=== PATIENT | female | born 1960 | race Caucasian/White ===

== ENCOUNTER → 2017-11-21 09:16 | Outpatient (CLI) | payer OTHER, SELFPAY ==
[2017-11-21 09:43] LABS: Add Manual Diff / Slide Review NO; Basophils Percent Auto 1.1 % (0-2); Eosinophils Percent Auto 4.8 % (2-4); Hematocrit 41.4 % (36-46); Hemoglobin 14.2 g/dL (12.0-16.0); Lymphocytes Percent Auto 24.8 % (25-40); Mean Corpuscular HGB Conc 34.2 % (30-36); Mean Corpuscular Hemoglobin 29.5 PG (26-34); Mean Corpuscular Volume 86.3 fL (80-100); Monocytes Percent Auto 7.3 % (3-14); Neutrophils Absolute Auto 3800 /uL (3000-5900); Platelet Count 278 X10^3/uL (150-400); Red Cell Distribution Width 12.7 % (11.6-14.8); White Blood Cell Count 6.1 X10^3/uL (4.5-11.0)
[2017-11-21 10:01] LABS: Alanine Aminotransferase 33 IU/L (9-52); Albumin 4.4 g/dL (3.5-5.0); Albumin Globulin Ratio 1.6 (1.0-2.8); Alkaline Phosphatase 76 U/L (38-126); Aspartate Aminotransferase 23 IU/L (14-36); Bilirubin Total 0.5 mg/dL (0.2-1.3); Blood Urea Nitrogen 10 mg/dL (7-17); Calcium 9.6 mg/dL (8.4-10.2); Carbon Dioxide 23 mmol/L (22-32); Chloride 104 mmol/L (98-107); Estimated Glomerular Filt Rate > 60.0 mL/min (>60); Globulin 2.8 g/dL (1.7-4.1); Glucose 128 mg/dL (70-100); HEMOLYSIS < 15 (0-50); Potassium 3.8 mmol/L (3.4-5.1); Sodium 140 mmol/L (137-145); Total Protein 7.2 g/dL (6.3-8.2)
== END ==
PROVIDERS: Family Provider Physician Assistant; PCP Physician Assistant; Visit Provider Nurse Practitioner Gerontology
DX: C50.912 Malignant neoplasm of unspecified site of left female breast (principal)
CPT/HCPCS: 36415; 80053; 85025

== ENCOUNTER → 2018-05-19 07:24 | Outpatient (CLI) | payer OTHER, SELFPAY ==
[2018-05-19 09:35] LABS: Alanine Aminotransferase 38 IU/L (9-52); Albumin 4.3 g/dL (3.5-5.0); Albumin Globulin Ratio 1.5 (1.0-2.8); Alkaline Phosphatase 66 U/L (38-126); Aspartate Aminotransferase 22 IU/L (14-36); Bilirubin Total 0.6 mg/dL (0.2-1.3); Blood Urea Nitrogen 15 mg/dL (7-17); Calcium 9.3 mg/dL (8.4-10.2); Carbon Dioxide 25 mmol/L (22-32); Chloride 105 mmol/L (98-107); Cholesterol 199 mg/dL (140-199); Estimated Glomerular Filt Rate > 60.0 mL/min (>60); Globulin 2.8 g/dL (1.7-4.1); Glucose 152 mg/dL (70-100); HDL Cholesterol 36 mg/dL (40-60); HEMOLYSIS < 15 (0-50); LDL Cholesterol Calculated 132 mg/dL (<100); Potassium 4.7 mmol/L (3.4-5.1); Sodium 141 mmol/L (137-145); Total Protein 7.1 g/dL (6.3-8.2); Triglycerides 157 mg/dL (35-150)
== END ==
PROVIDERS: Family Provider Physician Assistant; PCP Physician Assistant; Visit Provider Physician Assistant
DX: E78.2 Mixed hyperlipidemia (principal); R01.1 Cardiac murmur, unspecified; Z51.81 Encounter for therapeutic drug level monitoring
CPT/HCPCS: 36415; 80053; 80061

== ENCOUNTER → 2018-06-01 14:52 | Outpatient (CLI) | payer OTHER, SELFPAY ==
--- NOTE | 2018-06-01 | DI.MG.S_ITS ---
BILATERAL DIGITAL SCREENING MAMMOGRAM 3D/2D WITH CAD POST LUMPECTOMY: 06/01/2018 CLINICAL: Routine screening. Personal history of left breast cancer. Comparison is made to exams dated: 05/23/2017 mammogram, 05/21/2016 mammogram, 01/30/2014 mammogram, and 03/03/2015 mammogram - [facility]. There are scattered fibroglandular elements in both breasts. Current study was also evaluated with a Computer Aided Detection (CAD) system. There are benign post operative findings in the left breast. There also are benign calcifications in both breasts. No significant masses, calcifications, or other findings are seen in either breast. There has been no significant interval change. IMPRESSION: There is no mammographic evidence of malignancy. A 1 year screening mammogram is recommended. This exam was interpreted at Station ID: [id number]. NOTE: For mammograms, a report in lay terms will be sent to the patient. Approximately 15% of breast malignancies will not be visualized mammographically. In the management of a palpable breast mass, a negative mammogram must not discourage biopsy of a clinically suspicious lesion. Electronically Signed By: Reyes yates/[email or web address]:06/01/2018 17:40:10 copy to: LEANDRO BOGGS letter sent: Normal Exam ACR BI-RADS Category 2: Benign Finding(s) 3342F
== END ==
PROVIDERS: Family Provider Physician Assistant; PCP Physician Assistant; Visit Provider Physician Assistant
DX: Z12.31 Encounter for screening mammogram for malignant neoplasm of breast (principal); Z85.3 Personal history of malignant neoplasm of breast
CPT/HCPCS: 77063; 77067

== ENCOUNTER → 2018-06-01 15:44 | Outpatient (CLI) | payer OTHER, SELFPAY ==
[2018-06-01 16:26] LABS: Hemoglobin A1C% w Est Avg Glu 6.8 % (4.0-6.0)
[2018-06-01 16:46] LABS: Free T3, Triiodothyronine Free 4.21 pg/mL (2.77-5.27); Free T4, Direct Thyroxine 1.16 ng/dL (0.78-2.19)
[2018-06-01 17:00] LABS: Thyroid Stimulating Hormone 1.93 uIU/mL (0.47-4.68)
== END ==
PROVIDERS: Family Provider Physician Assistant; PCP Physician Assistant; Visit Provider Physician Assistant
DX: E78.2 Mixed hyperlipidemia (principal); R73.9 Hyperglycemia, unspecified
CPT/HCPCS: 36415; 83036; 84439; 84443; 84481

== ENCOUNTER → 2018-10-03 07:09 | Outpatient (CLI) | payer OTHER, SELFPAY ==
[2018-10-05 19:04] LABS: Fecal Immunochemical Test NOT DETECTED (NOT DETECTED)
== END ==
PROVIDERS: PCP Physician Assistant; Visit Provider Physician Assistant
DX: Z12.11 Encounter for screening for malignant neoplasm of colon (principal)
CPT/HCPCS: 82274

== ENCOUNTER → 2018-11-27 11:49 | Oncology outpatient (ONC) | payer OTHER, SELFPAY ==
--- NOTE | 2017-11-22 09:57 | ONC.APRN.PN ---
Assessment and Plan (1) Breast cancer, left breast Current visit: No Status: Acute 11/22/17 10:02 The patient is a 57 year old Female who is being seen in the clinic 11/22/2017. She carries a diagnosis of stage II ER/[place] positive HER-2 negative grade 2 left-sided breast cancer. She remains in clinical remission/surveillance since original diagnosis was made in April 2015. Annual bilateral screening mammogram in May of this year was without evidence of disease. Patient is up-to-date on colonoscopy as well. On exam today no clinical signs or symptoms to suggest disease recurrence. CBC, CMP remain unremarkable. Return to clinic in 6 months time for provider visit, no lab work indicated. 11/22/17 10:42 - Time Spent with Patient 35 mins PN -Subjective Interval history: The patient is a 57 year old Female who is being seen in the clinic 11/22/2017. She carries a diagnosis of stage II ER/[place] positive HER-2 negative grade 2 left-sided breast cancer. She remains in clinical remission/surveillance since original diagnosis was made in April 2015. Patient presents today for her 6 month clinical evaluation. Most recent bilateral screening mammogram dated 05/23/2017 was without evidence of recurrent disease. Patient's acute chief complaints at this time include: none. Patient's chronic chief complaints at this time include: hot flashes, not getting any better. She reports she continues to have hot flashes daily. She states they are ?tolerable?. Neuropathy has resolved. Acupuncture helped tremendously. No recent illnesses or infections. Overall feeling quite well. No concerns or changes to report. Continues to see Meli López for her primary care. She is up-to-date on colonoscopy. Past Medical History The patient's past medical history is significant for: 1) Invasive breast cancer. Stage I pT1 N0, ercb-2 like. Diagnosis: 04/14/2015. Ultrasound core needle, left breast, 6- o'clock position. Pathology confirming invasive ductal carcinoma, moderately differentiated. [place] histological grade 2 out of 3 with a mitosis of 2. No LVI or associated calcifications were seen. No DCIS. Immunostains were negative for ER and [place], both less than 1%. HER-2 was 3+. IHC, and Ki-67 was noted to be 38%. 05/21/2015. Partial mastectomy with sentinel node procedure. Pathology reporting 11.5-cm of breast tissue removed. Her primary occupying 1.4 cm with a [place] histological grade of 3 with a mitosis score of 3. No LVI was seen. Associated DCIS was identified. However, margins of resection were negative for carcinoma, the closest for the invasive being 4 mm, DCIS 3 mm. Two sentinel lymph nodes were identified, both of which were negative for disease. Breast cancer risk factor evaluation: 04/24/2015. BRCA testing showing no evidence of BRCA mutation. Adjuvant Treatment: 06/17/2015. Pertuzamab, Herceptin, and paclitaxel every 3 week ?4 cycles. She completed 1 year of maintenance Herceptin on 06/15/2016. Cardiac monitorin04/29/2015. Echocardiogram. EF of 70% to 75%. 03/01/2016. Echocardiogram. EF 65-70%. Surveillance: Mammogram every May. 2. Hypercholesterolemia. 3. Anxiety. 4. Seasonal allergies. Home Medications and Allergies Home Medications Medication Instructions Recorded Confirmed Type aspirin 81 mg PO QDAY #0 07/14/16 11/14/17 History fenofibrate 160 mg PO QDAY #90 tab 03/08/17 11/14/17 Rx pravastatin [Pravachol] 40 mg PO HS #90 tab 03/08/17 11/14/17 Rx levocetirizine 5 mg PO QDAY #90 tab 08/16/17 11/14/17 Rx Allergies Allergy/AdvReac Type Severity Reaction Status Date / Time strawberry Allergy Severe REDNESS Unverified 11/14/17 13:26 AND SWOLLEN LIPS nitrofurantoin Allergy Intermediate UPSET Unverified 11/14/17 13:26 STOMACH atorvastatin Allergy Mild MYALGIAS Unverified 11/14/17 13:26 codeine Allergy Mild VOMITING Unverified 11/14/17 13:26 Penicillins Allergy Mild RASH Unverified 11/14/17 13:26 Exam Narrative: well appearing - Constitutional positive no acute distress, positive obese - Routine HEENT Exam Head: Present: normocephalic, atraumatic Eye: Present: conjunctivae pink. Absent: conjunctival icterus, scleral injection ENT: Present: mucous membranes moist, oropharynx clear - Routine Neck Exam Present: supple. Absent: lymphadenopathy - Routine Chest/Breast/Axilla Exam Chest wall exam standard: Absent: tenderness, mass Breast: Absent: tenderness, induration, mass, erythema Axillae: Absent: lymphadenopathy, mass, tenderness, erythema - Routine Respiratory Exam Present: Clear to auscultation bilaterally - Routine Cardiovascular Exam Present: RRR - Routine Abdominal Exam Present: soft, normoactive bowel sounds. Absent: tenderness, distended, organomegaly - Routine Extremities Exam Absent: edema, calf tenderness - Routine Skin Exam Present: intact, normal turgor. Absent: petechiae - Routine Neurological Exam Present: alert, oriented X3 - Routine Psychiatric Exam Present: normal affect
--- NOTE | 2017-11-22 10:02 | P.PNONC_ITS ---
Assessment and Plan (1) Breast cancer, left breast Current visit: No Status: Acute 11/22/17 10:02 The patient is a 57 year old Female who is being seen in the clinic 11/22/2017. She carries a diagnosis of stage II ER/[place] positive HER-2 negative grade 2 left- sided breast cancer. She remains in clinical remission/surveillance since original diagnosis was made in April 2015. Annual bilateral screening mammogram in May of this year was without evidence of disease. Patient is up-to-date on colonoscopy as well. On exam today no clinical signs or symptoms to suggest disease recurrence. CBC , CMP remain unremarkable. Return to clinic in 6 months time for provider visit , no lab work indicated. 11/22/17 10:42 - Time Spent with Patient 35 mins PN -Subjective Interval history: The patient is a 57 year old Female who is being seen in the clinic 11/22/2017. She carries a diagnosis of stage II ER/[place] positive HER-2 negative grade 2 left- sided breast cancer. She remains in clinical remission/surveillance since original diagnosis was made in April 2015. Patient presents today for her 6 month clinical evaluation. Most recent bilateral screening mammogram dated 05/23/2017 was without evidence of recurrent disease. Patient's acute chief complaints at this time include: none. Patient's chronic chief complaints at this time include: hot flashes, not getting any better. She reports she continues to have hot flashes daily. She states they are ?tolerable?. Neuropathy has resolved. Acupuncture helped tremendously. No recent illnesses or infections. Overall feeling quite well. No concerns or changes to report. Continues to see Meli López for her primary care. She is up -to-date on colonoscopy. Past Medical History The patient's past medical history is significant for: 1) Invasive breast cancer. Stage I pT1 N0, ercb-2 like. Diagnosis: 04/14/2015. Ultrasound core needle, left breast, 6- o'clock position. Pathology confirming invasive ductal carcinoma, moderately differentiated. [place] histological grade 2 out of 3 with a mitosis of 2. No LVI or associated calcifications were seen. No DCIS. Immunostains were negative for ER and [place], both less than 1%. HER-2 was 3+. IHC, and Ki-67 was noted to be 38%. 05/21/2015. Partial mastectomy with sentinel node procedure. Pathology reporting 11.5-cm of breast tissue removed. Her primary occupying 1.4 cm with a [place] histological grade of 3 with a mitosis score of 3. No LVI was seen. Associated DCIS was identified. However, margins of resection were negative for carcinoma, the closest for the invasive being 4 mm, DCIS 3 mm. Two sentinel lymph nodes were identified, both of which were negative for disease. Breast cancer risk factor evaluation: 04/24/2015. BRCA testing showing no evidence of BRCA mutation. Adjuvant Treatment: 06/17/2015. Pertuzamab, Herceptin, and paclitaxel every 3 week ?4 cycles. She completed 1 year of maintenance Herceptin on 06/15/2016. Cardiac monitorin04/29/2015. Echocardiogram. EF of 70% to 75%. 03/01/2016. Echocardiogram. EF 65-70%. Surveillance: Mammogram every May. 2. Hypercholesterolemia. 3. Anxiety. 4. Seasonal allergies. Home Medications and Allergies Home Medications Medication Instructions Recorded Confirmed Type aspirin 81 mg PO QDAY #0 07/14/16 11/14/17 History fenofibrate 160 mg PO QDAY #90 tab 03/08/17 11/14/17 Rx pravastatin [Pravachol] 40 mg PO HS #90 tab 03/08/17 11/14/17 Rx levocetirizine 5 mg PO QDAY #90 tab 08/16/17 11/14/17 Rx Allergies Allergy/AdvReac Type Severity Reaction Status Date / Time strawberry Allergy Severe REDNESS Unverified 11/14/17 13:26 AND SWOLLEN LIPS nitrofurantoin Allergy Intermediate UPSET Unverified 11/14/17 13:26 STOMACH atorvastatin Allergy Mild MYALGIAS Unverified 11/14/17 13:26 codeine Allergy Mild VOMITING Unverified 11/14/17 13:26 Penicillins Allergy Mild RASH Unverified 11/14/17 13:26 Exam Narrative: well appearing - Constitutional positive no acute distress, positive obese - Routine HEENT Exam Head: Present: normocephalic, atraumatic Eye: Present: conjunctivae pink. Absent: conjunctival icterus, scleral injection ENT: Present: mucous membranes moist, oropharynx clear - Routine Neck Exam Present: supple. Absent: lymphadenopathy - Routine Chest/Breast/Axilla Exam Chest wall exam standard: Absent: tenderness, mass Breast: Absent: tenderness, induration, mass, erythema Axillae: Absent: lymphadenopathy, mass, tenderness, erythema - Routine Respiratory Exam Present: Clear to auscultation bilaterally - Routine Cardiovascular Exam Present: RRR - Routine Abdominal Exam Present: soft, normoactive bowel sounds. Absent: tenderness, distended, organomegaly - Routine Extremities Exam Absent: edema, calf tenderness - Routine Skin Exam Present: intact, normal turgor. Absent: petechiae - Routine Neurological Exam Present: alert, oriented X3 - Routine Psychiatric Exam Present: normal affect
[2017-11-22 10:19] VITALS: BP 146/88; PULSE 84; RESP 18; TEMP 36; O2SAT 98
--- NOTE | 2018-06-06 13:21 | P.PNONC_ITS ---
PN -Subjective Interval history: The patient is a 57 year old Female who is being seen in the clinic 06/06/2018. She carries a diagnosis of stage II ER/[place] positive HER-2 negative grade 2 left- sided breast cancer. She remains in clinical remission/surveillance since original diagnosis was made in April 2015. Patient presents today for her 6 month clinical evaluation. Most recent bilateral screening mammogram dated 06/01/2018 was without evidence of recurrent disease, recommendation is to repeat in one year. Patient's acute chief complaints at this time include: none. Unfortunately she recently suffered the loss of her [id number] who from ALS. Otherwise she is in good health. She does continue to have almost daily hot flashes although she states they are tolerable. She has not had any illnesses since previous visit. No headaches. No unexplained weight loss, appetite is stable, weight is stable. No new pain. No new lumps or bumps. No skin changes. 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 Past Medical History The patient's past medical history is significant for: 1) Invasive breast cancer. Stage I pT1 N0, ercb-2 like. Diagnosis: 04/14/2015. Ultrasound core needle, left breast, 6- o'clock position. Pathology confirming invasive ductal carcinoma, moderately differentiated. [place] histological grade 2 out of 3 with a mitosis of 2. No LVI or associated calcifications were seen. No DCIS. Immunostains were negative for ER and [place], both less than 1%. HER-2 was 3+. IHC, and Ki-67 was noted to be 38%. 05/21/2015. Partial mastectomy with sentinel node procedure. Pathology reporting 11.5-cm of breast tissue removed. Her primary occupying 1.4 cm with a [place] histological grade of 3 with a mitosis score of 3. No LVI was seen. Associated DCIS was identified. However, margins of resection were negative for carcinoma, the closest for the invasive being 4 mm, DCIS 3 mm. Two sentinel lymph nodes were identified, both of which were negative for disease. Breast cancer risk factor evaluation: 04/24/2015. BRCA testing showing no evidence of BRCA mutation. Adjuvant Treatment: 06/17/2015. Pertuzamab, Herceptin, and paclitaxel every 3 week ?4 cycles. She completed 1 year of maintenance Herceptin on 06/15/2016. Cardiac monitorin04/29/2015. Echocardiogram. EF of 70% to 75%. 03/01/2016. Echocardiogram. EF 65-70%. Surveillance: Mammogram every May. 2. Hypercholesterolemia. 3. Anxiety. 4. Seasonal allergies. Home Medications and Allergies Home Medications Medication Instructions Recorded Confirmed Type aspirin 81 mg PO QDAY #0 07/14/16 05/23/18 History levocetirizine 5 mg PO QDAY #90 tab 08/16/17 05/23/18 Rx fenofibrate 160 mg tablet 160 mg PO QDAY #90 tab 05/09/18 05/23/18 Rx pravastatin 40 mg tablet 40 mg PO HS #90 tab 05/09/18 05/23/18 Rx Allergies Allergy/AdvReac Type Severity Reaction Status Date / Time strawberry Allergy Severe REDNESS Unverified 05/23/18 15:53 AND SWOLLEN LIPS nitrofurantoin Allergy Intermediate UPSET Unverified 05/23/18 15:53 STOMACH atorvastatin Allergy Mild MYALGIAS Unverified 05/23/18 15:53 codeine Allergy Mild VOMITING Unverified 05/23/18 15:53 Penicillins Allergy Mild RASH Unverified 05/23/18 15:53 Exam - Constitutional positive no acute distress - Routine HEENT Exam Eye: Present: conjunctivae pink. Absent: conjunctival icterus, scleral injection ENT: Present: mucous membranes moist, oropharynx clear - Routine Neck Exam Present: supple. Absent: lymphadenopathy - Routine Chest/Breast/Axilla Exam Chest wall exam standard: Absent: tenderness, mass Breast: Absent: tenderness, induration, mass Axillae: Absent: lymphadenopathy, mass, tenderness - Routine Respiratory Exam Present: Clear to auscultation bilaterally. Absent: rales, rhonchi, wheezes - Routine Cardiovascular Exam Present: RRR, S1, S2. Absent: murmur, gallop, rubs, JVD - Routine Abdominal Exam Present: soft, normoactive bowel sounds. Absent: tenderness, distended, organomegaly Palpation/Percussion: Absent: fluid waves Comments: obese abd - Routine Extremities Exam Absent: edema, calf tenderness - Routine Skin Exam Present: intact, normal turgor. Absent: rash - Routine Neurological Exam Present: alert, oriented X3 - Routine Psychiatric Exam Present: normal affect Assessment and Plan (1) Breast cancer, left breast Current visit: No Status: Resolved The patient is a 58-year-old female who carries a diagnosis of stage II ER/[place] positive, HER2 negative left-sided breast cancer. Reassuringly on exam today she has no clinical signs or symptoms of disease recurrence. Routine bilateral screening Mammogram dated June 01, 2017 is without evidence of malignancy. Patient reports she is up-to-date with her colonoscopy. Return to clinic in 6 months time for provider visit we will also check basic blood work including CBC and CMP.
[2018-11-27 13:42] LABS: Add Manual Diff / Slide Review NO; Basophils Absolute Auto 100 /uL (0-100); Basophils Percent Auto 1.1 % (0-2); Eosinophils Absolute Auto 300 /uL (0-450); Eosinophils Percent Auto 4.1 % (2-4); Hematocrit 43.5 % (36-46); Hemoglobin 14.4 g/dL (12.0-16.0); Lymphocytes Absolute Auto 1900 /uL (1100-4500); Lymphocytes Percent Auto 23.7 % (25-40); Mean Corpuscular HGB Conc 33.1 % (30-36); Mean Corpuscular Hemoglobin 29.5 PG (26-34); Monocytes Absolute Auto 400 /uL (0-900); Monocytes Percent Auto 5.4 % (3-14); Neutrophils Absolute Auto 5200 /uL (1500-7000); Neutrophils Percent Auto 65.7 % (50-75); Platelet Count 303 X10^3/uL (150-400); Red Blood Cell Count 4.88 X10^6/uL (4.0-5.2); Red Cell Distribution Width 13.1 % (11.6-14.8)
[2018-11-27 14:58] LABS: Alanine Aminotransferase 27 IU/L (9-52); Albumin 4.4 g/dL (3.5-5.0); Albumin Globulin Ratio 1.6 (1.0-2.8); Alkaline Phosphatase 61 U/L (38-126); Aspartate Aminotransferase 25 IU/L (14-36); BUN Creatinine Ratio 27.5 (6-22); Bilirubin Total 0.6 mg/dL (0.2-1.3); Blood Urea Nitrogen 11 mg/dL (7-17); Calcium 9.9 mg/dL (8.4-10.2); Carbon Dioxide 24 mmol/L (22-32); Chloride 100 mmol/L (98-107); Estimated Glomerular Filt Rate > 60.0 mL/min (>60); Globulin 2.8 g/dL (1.7-4.1); Glucose 170 mg/dL (70-100); HEMOLYSIS 18 (0-50); Potassium 4.2 mmol/L (3.4-5.1); Sodium 139 mmol/L (137-145); Total Protein 7.2 g/dL (6.3-8.2)
== END ==
PROVIDERS: Family Provider Physician Assistant; PCP Physician Assistant; Visit Provider Internal Medicine Hematology & Oncology
DX: Z08 Encounter for follow-up examination after completed treatment for malignant neoplasm (principal); Z85.3 Personal history of malignant neoplasm of breast; E78.00 Pure hypercholesterolemia, unspecified; F41.9 Anxiety disorder, unspecified; J30.2 Other seasonal allergic rhinitis
CPT/HCPCS: 36415; 80053; 85025; 99214

== ENCOUNTER → 2019-03-30 08:42 | Outpatient (CLI) | payer OTHER, SELFPAY ==
[2019-03-30 09:53] LABS: Hemoglobin A1C% w Est Avg Glu 6.9 % (4.0-6.0)
[2019-03-30 09:54] LABS: Alanine Aminotransferase 23 IU/L (<35); Albumin 4.4 g/dL (3.5-5.0); Albumin Globulin Ratio 1.7 (1.0-2.8); Alkaline Phosphatase 67 U/L (38-126); Aspartate Aminotransferase 22 IU/L (14-36); BUN Creatinine Ratio 32.5 (6-22); Bilirubin Total 0.6 mg/dL (0.2-1.3); Blood Urea Nitrogen 13 mg/dL (7-17); Carbon Dioxide 26 mmol/L (22-32); Chloride 104 mmol/L (98-107); Cholesterol 178 mg/dL (140-199); Estimated Glomerular Filt Rate > 60.0 mL/min (>60); Globulin 2.6 g/dL (1.7-4.1); Glucose 139 mg/dL (70-100); HDL Cholesterol 32 mg/dL (40-60); HEMOLYSIS < 15 (0-50); LDL Cholesterol Calculated 112 mg/dL (<100); Potassium 4.7 mmol/L (3.4-5.1); Sodium 139 mmol/L (137-145); Triglycerides 168 mg/dL (35-150)
[2019-03-30 10:31] LABS: Creatinine Urine Random 44.5 mg/dL
[2019-03-30 10:36] LABS: Microalbumi Creatinin Ratio Ur 13.4 ug/mg CR (<30); Microalbumin Urine Random < 0.6 mg/dL (0-1.6)
[2019-03-30 11:01] LABS: Thyroid Stimulating Hormone 3.17 uIU/mL (0.47-4.68)
== END ==
PROVIDERS: PCP Physician Assistant; Visit Provider Physician Assistant
DX: E78.2 Mixed hyperlipidemia (principal); R23.2 Flushing; R53.83 Other fatigue; R73.01 Impaired fasting glucose
CPT/HCPCS: 36415; 80053; 80061; 82043; 82570; 83036; 84443

== ENCOUNTER → 2019-05-21 10:07 | Outpatient (CLI) | payer OTHER, SELFPAY ==
[2019-05-21 12:50] LABS: Hemoglobin A1C% w Est Avg Glu 6.8 % (4.0-6.0)
== END ==
PROVIDERS: PCP Physician Assistant; Visit Provider Physician Assistant
DX: E11.9 Type 2 diabetes mellitus without complications (principal); E78.2 Mixed hyperlipidemia
CPT/HCPCS: 36415; 83036

== ENCOUNTER → 2019-06-05 16:53 | Outpatient (CLI) | payer OTHER, SELFPAY ==
--- NOTE | 2019-06-05 16:56 | DI.MG.S_ITS ---
BILATERAL DIGITAL SCREENING MAMMOGRAM 3D/2D WITH CAD: 06/05/2019 CLINICAL: Routine screening. Personal history of left breast cancer. Family history of breast cancer. Comparison is made to exams dated: 06/01/2018 mammogram, 05/23/2017 mammogram, 05/21/2016 mammogram, 05/21/2015 localization, and 03/03/2015 mammogram - [facility]. There are scattered fibroglandular elements in both breasts. Current study was also evaluated with a Computer Aided Detection (CAD) system. There are benign calcifications in both breasts. There also are benign post operative findings in the left breast. No significant masses, calcifications, or other findings are seen in either breast. There has been no significant interval change. IMPRESSION: There is no mammographic evidence of malignancy. A 1 year screening mammogram is recommended. This exam was interpreted at Station ID: [id number]. NOTE: For mammograms, a report in lay terms will be sent to the patient. Approximately 15% of breast malignancies will not be visualized mammographically. In the management of a palpable breast mass, a negative mammogram must not discourage biopsy of a clinically suspicious lesion. Electronically Signed By: Jose Manuel wright/christine:06/05/2019 18:17:13 copy to: LEANDRO BOGGS letter sent: Normal Exam ACR BI-RADS Category 2: Benign Finding(s) 3342F
== END ==
PROVIDERS: PCP Physician Assistant; Referring Provider Physician Assistant; Visit Provider Physician Assistant
DX: Z12.31 Encounter for screening mammogram for malignant neoplasm of breast (principal); Z85.3 Personal history of malignant neoplasm of breast; Z80.3 Family history of malignant neoplasm of breast
CPT/HCPCS: 77063; 77067

== ENCOUNTER → 2019-06-20 15:04 | Outpatient (CLI) | payer OTHER, SELFPAY ==
--- NOTE | 2019-06-20 16:57 | DIET.PN ---
Diabetes Intake: Initial Assessment Assess: Mrs. Trujillo is a 59 YOF referred for type 2 diabetes. She is newly diagnosed. Labs: Per pt report: A1c: 6.8 Meds: metformin XR 500 mg qd Wt: 231lb Ht: 65in BMI: 38.4 (obese class III) DX: Altered nutrition related laboratory values related to impaired glucose metabolism, lack of previous exposure to nutrition information as evidenced by pt report, diagnosis of diabetes, previous diet high in refined carbohydrates. Intervention: 1. Completed intake assessment. Discussed barriers to care. 2. Discussed pathophysiology of diabetes. Reviewed A1c and its correlation to blood glucose numbers. Discussed recommended BG ranges. 3. Discussed importance of self-monitoring, how often, and when to check. Provided demonstration on use of glucometer. 4. Reviewed hyper/hypoglycemia and treatment. 5. Reviewed safe disposal of equipment (strip/lancets/insulin needles). 6. Created SMART goals for pt self-care and success. 7. Discussed program curriculum outline and class needs based on individual goals. SMART Goals: 1. Pt would like to lose 12 lb (5% current body weight) in 3 mo. Monitor/Evaluate: Anticipate excellent compliance. Pt will attend full DSME program. First class scheduled for Jul 02.
== END ==
PROVIDERS: PCP Nurse Practitioner Family; Referring Provider Physician Assistant; Visit Provider Physician Assistant
DX: E11.9 Type 2 diabetes mellitus without complications (principal); E66.9 Obesity, unspecified; Z68.38 Body mass index [BMI] 38.0-38.9, adult; Z71.3 Dietary counseling and surveillance
CPT/HCPCS: G0108

== ENCOUNTER → 2019-07-03 14:21 | Outpatient (CLI) | payer OTHER, SELFPAY ==
--- NOTE | 2019-07-03 16:54 | DIET.PN ---
Exercise/Lifestyle change: 1. Importance of exercise 2. FITT (frequency, intensity, time, type) 3. Strength training tips and guidelines 4. Glucose monitoring/ranges before and after 5. Proper foot attire 6. Developing strategies for behavior change 7. SMART Goal Setting 8. Home exercise routine demonstration (as a class)
== END ==
PROVIDERS: PCP Nurse Practitioner Family; Referring Provider Nurse Practitioner Family; Visit Provider Nurse Practitioner Family
DX: E11.9 Type 2 diabetes mellitus without complications (principal); Z71.3 Dietary counseling and surveillance
CPT/HCPCS: G0109

== ENCOUNTER → 2019-10-01 07:36 | Outpatient (CLI) | payer OTHER, SELFPAY ==
[2019-10-01 07:57] LABS: Hematocrit 41.5 % (36-46); Mean Corpuscular HGB Conc 33.8 % (30-36); Mean Corpuscular Hemoglobin 29.8 PG (26-34); Mean Corpuscular Volume 88.2 fL (80-100); Platelet Count 268 X10^3/uL (150-400); Red Blood Cell Count 4.71 X10^6/uL (4.0-5.2); Red Cell Distribution Width 13.1 % (11.6-14.8); White Blood Cell Count 6.5 X10^3/uL (4.5-11.0)
[2019-10-01 08:08] LABS: Hemoglobin A1C% w Est Avg Glu 6.9 % (4.0-6.0)
[2019-10-01 08:11] LABS: Alanine Aminotransferase 22 IU/L (<35); Albumin 4.5 g/dL (3.5-5.0); Albumin Globulin Ratio 1.5 (1.0-2.8); Alkaline Phosphatase 56 U/L (38-126); Aspartate Aminotransferase 24 IU/L (14-36); BUN Creatinine Ratio 36.6 (6-22); Bilirubin Total 0.4 mg/dL (0.2-1.3); Blood Urea Nitrogen 15 mg/dL (7-17); Calcium 9.5 mg/dL (8.4-10.2); Carbon Dioxide 24 mmol/L (22-32); Chloride 106 mmol/L (98-107); Cholesterol 178 mg/dL (140-199); Estimated Glomerular Filt Rate > 60.0 mL/min (>60); Globulin 3.1 g/dL (1.7-4.1); Glucose 143 mg/dL (70-100); HDL Cholesterol 31 mg/dL (40-60); HEMOLYSIS < 15 (0-50); LDL Cholesterol Calculated 123 mg/dL (<100); Potassium 4.4 mmol/L (3.4-5.1); Sodium 141 mmol/L (137-145); Total Protein 7.6 g/dL (6.3-8.2); Triglycerides 121 mg/dL (35-150)
== END ==
PROVIDERS: PCP Nurse Practitioner Family; Referring Provider Nurse Practitioner Family; Visit Provider Nurse Practitioner Family
DX: Z00.00 Encounter for general adult medical examination without abnormal findings (principal); E11.9 Type 2 diabetes mellitus without complications; E78.2 Mixed hyperlipidemia
CPT/HCPCS: 36415; 80053; 80061; 83036; 85027

== ENCOUNTER → 2019-10-25 09:51 | Outpatient (CLI) | payer OTHER, SELFPAY ==
--- NOTE | 2019-10-25 12:14 | DIET.PN ---
Diabetes: Healthy Eating 2 Intervention: Fats effects on glucose, weight, heart disease, cholesterol Sat Vs Unsat Protein- animal and plant based options Low, med, high fat meats Sugar substitutes Sodium Health claims Grocery shopping guidelines Eating away from home Alcohol Sick day guidelines Ketone Testing
== END ==
PROVIDERS: PCP Nurse Practitioner Family; Referring Provider Nurse Practitioner Family; Visit Provider Nurse Practitioner Family
DX: E11.9 Type 2 diabetes mellitus without complications (principal); Z71.3 Dietary counseling and surveillance
CPT/HCPCS: G0109

== ENCOUNTER → 2019-10-30 10:00 | Outpatient (CLI) | payer OTHER, SELFPAY ==
--- NOTE | 2019-10-30 11:54 | DIET.PN ---
Diabetes Physiology: Intervention 1. Diabetes physiology 2. Detecting and treatment of acute and chronic complications 3. Diagnosis of and difference in types of diabetes 4. Self-monitoring and pattern management a. Demonstrate glucometer and control testing b. Explain BG results and action to take when out of range. 5. Foot , eye, dental care 6. Medications a. Oral medication classification b. Injectable c. Insulin i. Injection protocol ii. Other delivery methods
== END ==
PROVIDERS: PCP Nurse Practitioner Family; Referring Provider Nurse Practitioner Family; Visit Provider Nurse Practitioner Family
DX: E11.9 Type 2 diabetes mellitus without complications (principal); Z71.3 Dietary counseling and surveillance
CPT/HCPCS: G0109

== ENCOUNTER → 2019-11-19 09:54 | Outpatient (CLI) | payer OTHER, SELFPAY ==
--- NOTE | 2019-11-19 11:12 | DIET.PN ---
DIABETES Nutrition Initial Assessment:? ASSESS:?Ms. Zee is a 59 yof??referred for type 2 diabetes seen as part of DSME program. She had new labs in September with minimal change. She endorses walking several miles with her daily up until the last week and a half during her vacation. She admits her eating habits have not been as good since beginning her summer vacation. They are often out of town at their summer home. She has been adding more fruits and vegetables to her meals, using a smaller plate, and is grilling rather than frying meats. She has been carrying a water bottle with her everywhere she goes to increase her water consumption. Her has been very supportive in exercising and trying to eat healthier with her. ??? LABS: Per pt report:? A1c: 6.9 TC: 178 LDL: 123 HDL: 31 Tri ? MEDS:?? Metf XR 500mg qd; new cholesterol med ? DIET: Per 24-hour recall:? B: Bowl of cereal w/ almond milk; yogurt (low fat w/ fruit) L: Castor w/ occasional chips or cottage cheese D: Lean meat, salad, starch (rice, potato) Sn: Popcorn, frozen yogurt Eating Out: 1-3x/wk Changes in Appetite: no change Nutrition Supplements: no change ? Weight: 231 Height: 65in BMI: ? 38.4 (obese class III) ? Exercise:? Rachid Salazar 2.5 miles/day NUTRITION DX 1. Altered Nutrition related labs related to impaired glucose metabolism, lack of previous exposure to accurate nutrition information as evidenced by pt report, dx of diabetes, previous diet high in refined carbohydrates.? INTERVENTION(s): 1. Reviewed pathophysiology of diabetes and impact of nutrition/diet on blood sugar control.? Discussed fed versus non-fed state.?? 2. Discussed the effect of carbohydrates/protein/fat on blood sugar control.? Stressed importance of consistent carbohydrate intake at each meal and provided instructions for recommended servings/portions of carbohydrates/protein per meal. Provided pt with educational material. 3. Reviewed carbohydrate counting and measuring carbohydrate content via serving sizes and reading nutrition labels.? Provided handouts.?? 4. Discussed the difference between simple versus complex carbohydrates and the effect of fiber on blood sugar control.? Discussed various methods to increase fiber content in diet. 5. Stressed importance of meal timing and not going >4-5 hours between meals. Encouraged adding protein to evening snack to support glucose control overnight. Patient agreeable. 6. Discussed healthy weight loss goals of 1-2lbs per week through diet and exercise.? Pt agreeable to walking at least 30 minutes daily. 7. Recommend monitoring fasting and alternating 2 hr PP mealtime glucose. MONITOR/EVALUATE: Anticipate good compliance.? Nutrition follow-up scheduled for 1 month
[2019-11-19 11:13] VITALS: BMI 38.5
== END ==
PROVIDERS: PCP Nurse Practitioner Family; Referring Provider Nurse Practitioner Family; Visit Provider Nurse Practitioner Family
DX: E11.9 Type 2 diabetes mellitus without complications (principal); E66.9 Obesity, unspecified; Z68.38 Body mass index [BMI] 38.0-38.9, adult; Z79.84 Long term (current) use of oral hypoglycemic drugs; Z71.3 Dietary counseling and surveillance
CPT/HCPCS: G0109

== ENCOUNTER → 2019-12-11 10:09 | Outpatient (CLI) | payer OTHER, SELFPAY ==
--- NOTE | 2019-12-11 11:48 | DIET.PN ---
Diabetes: Healthy Eating 1 Intervention: ? Discussed pathophysiology of diabetes and impact of nutrition/diet on blood sugar control.? Discussed fed versus non-fed state.?? ? Reviewed importance of Balance, Variety, and Moderation. ? Discussed the effect of carbohydrates/protein/fat on blood sugar control.? ? Stressed importance of consistent carbohydrate intake at each meal and provided instructions for recommended servings/portions of carbohydrates/protein per meal. Provided educational material. ? Reviewed carbohydrate counting and measuring carbohydrate content via serving sizes and reading nutrition labels.? Provided handouts.?? ? Discussed the difference between simple versus complex carbohydrates and the effect of fiber on blood sugar control.? Discussed various methods to increase fiber content in diet. ? Discussed the plate method for creating more carbohydrate conscious balanced meals. ? Stressed importance of meal timing and not going >4-5 hours between meals. Encouraged adding protein to evening snack to support glucose control overnight. ? Discussed importance of making dietary habits part of lifestyle change.
== END ==
PROVIDERS: PCP Nurse Practitioner Family; Referring Provider Nurse Practitioner Family; Visit Provider Nurse Practitioner Family
DX: E11.9 Type 2 diabetes mellitus without complications (principal); Z71.3 Dietary counseling and surveillance
CPT/HCPCS: G0109

== ENCOUNTER → 2019-12-26 13:46 | Outpatient (CLI) | payer OTHER, SELFPAY ==
--- NOTE | 2019-12-26 15:15 | DIET.PN ---
Diabetes Follow Up Assess: Met for Mrs. Zee?s 3 mo follow up visit. Patient admits she has not been following her meal plan much over the summer. She has spent a lot of time on vacation dining out and at her summer cabin snacking. She has not been very active over the last few months due to warmer weather. She states she understands what she should be doing but is having a hard time sticking with it. She admits she is not staying as hydrated as she should and feels this is affecting her glucose readings as well. Labs: A1c: 6.9 FB-180 Meds: metf XR 500 mg pd Ht: 65in Wt: 232.4 lb BMI: 38.6 Nutrition DX: Altered nutrition related laboratory values related to impaired glucose metabolism, lack of previous exposure to nutrition information as evidenced by pt report, diagnosis of diabetes, previous diet high in refined carbohydrates. Intervention: 1. Completed follow up assessment. Reviewed barriers to care. 2. Reviewed new labs and importance of continued BG monitoring. 3. Reviewed SMART goals and made modifications where appropriate including wt management, activity, and A1c goals. 4. Discussed snack options for better glucose control. Provided ?under 200 calorie snack? list. 5. Discussed goals for physical activity to help with weight management. 6. Discussed plan for ongoing support. Provided information for continued support and success. Monitor/Evaluate: Pt will follow up in 3 mo to discuss new labs and barriers to care.
== END ==
PROVIDERS: PCP Nurse Practitioner Family; Referring Provider Nurse Practitioner Family; Visit Provider Nurse Practitioner Family
DX: E11.9 Type 2 diabetes mellitus without complications (principal)
CPT/HCPCS: G0109

== ENCOUNTER → 2020-04-04 07:24 | Outpatient (CLI) | payer OTHER, SELFPAY ==
[2020-04-04 08:30] LABS: Hemoglobin A1C% w Est Avg Glu 7.4 % (4.0-6.0)
[2020-04-04 08:59] LABS: BUN Creatinine Ratio 33.3 (6-22); Blood Urea Nitrogen 14 mg/dL (7-17); Calcium 9.4 mg/dL (8.4-10.2); Carbon Dioxide 25 mmol/L (22-32); Chloride 103 mmol/L (98-107); Cholesterol 160 mg/dL (140-199); Estimated Glomerular Filt Rate > 60.0 mL/min (>60); Glucose 151 mg/dL (70-100); HDL Cholesterol 34 mg/dL (40-60); HEMOLYSIS < 15 (0-50); LDL Cholesterol Calculated 92 mg/dL (<100); Potassium 4.3 mmol/L (3.4-5.1); Sodium 136 mmol/L (137-145); Triglycerides 172 mg/dL (35-150)
== END ==
PROVIDERS: PCP Nurse Practitioner Family; Referring Provider Nurse Practitioner Family; Visit Provider Nurse Practitioner Family
DX: E11.9 Type 2 diabetes mellitus without complications (principal); E78.5 Hyperlipidemia, unspecified
CPT/HCPCS: 36415; 80048; 80061; 83036

== ENCOUNTER → 2020-04-08 14:17 | Outpatient (CLI) | payer OTHER, SELFPAY | PROVIDERS: PCP Nurse Practitioner Family; Referring Provider Nurse Practitioner Family; Visit Provider Nurse Practitioner Family | DX: E11.9 Type 2 diabetes mellitus without complications (principal); Z71.3 Dietary counseling and surveillance | CPT/HCPCS: G0109 ==

== ENCOUNTER → 2020-06-06 15:39 | Outpatient (CLI) | payer OTHER, SELFPAY ==
--- NOTE | 2020-06-06 15:40 | DI.MG.S_ITS ---
BILATERAL DIGITAL SCREENING MAMMOGRAM 3D/2D WITH CAD: 06/06/2020 CLINICAL: Routine screening. Personal history of left breast cancer. Family history of breast cancer. Comparison is made to exams dated: 06/05/2019 mammogram, 06/01/2018 mammogram, 05/23/2017 mammogram, and 05/21/2016 mammogram - [facility]. There are scattered fibroglandular elements in both breasts. Current study was also evaluated with a Computer Aided Detection (CAD) system. There are benign calcifications in both breasts. There also are benign post operative findings in the left breast. No significant masses, calcifications, or other findings are seen in either breast. There has been no significant interval change. IMPRESSION: BENIGN There is no mammographic evidence of malignancy. A 1 year screening mammogram is recommended. This exam was interpreted at Station ID: [id number]. NOTE: For mammograms, a report in lay terms will be sent to the patient. Approximately 15% of breast malignancies will not be visualized mammographically. In the management of a palpable breast mass, a negative mammogram must not discourage biopsy of a clinically suspicious lesion. Electronically Signed By: Jerald puga/christine:06/06/2020 16:28:53 copy to: LEANDRO BOGGS letter sent: Normal Exam ACR BI-RADS Category 2: Benign Finding(s) 3342F
== END ==
PROVIDERS: PCP Nurse Practitioner Family; Referring Provider Nurse Practitioner Family; Visit Provider Nurse Practitioner Family
DX: Z12.31 Encounter for screening mammogram for malignant neoplasm of breast (principal); Z85.3 Personal history of malignant neoplasm of breast; Z80.3 Family history of malignant neoplasm of breast
CPT/HCPCS: 77063; 77067

== ENCOUNTER → 2020-08-07 08:08 | Outpatient (CLI) | payer OTHER, SELFPAY ==
[2020-08-07 09:21] LABS: Hemoglobin A1C% w Est Avg Glu 7.6 % (4.0-6.0)
[2020-08-07 09:33] LABS: Alanine Aminotransferase 30 IU/L (<35); Albumin 4.2 g/dL (3.5-5.0); Albumin Globulin Ratio 1.5 (1.0-2.8); Alkaline Phosphatase 69 U/L (38-126); Aspartate Aminotransferase 25 IU/L (14-36); BUN Creatinine Ratio 31.7 (6-22); Bilirubin Total 0.4 mg/dL (0.2-1.3); Blood Urea Nitrogen 13 mg/dL (7-17); Calcium 9.5 mg/dL (8.4-10.2); Carbon Dioxide 24 mmol/L (22-32); Chloride 103 mmol/L (98-107); Cholesterol 201 mg/dL (140-199); Estimated Glomerular Filt Rate > 60.0 mL/min (>60); Globulin 2.8 g/dL (1.7-4.1); Glucose 151 mg/dL (70-100); HDL Cholesterol 33 mg/dL (40-60); HEMOLYSIS < 15 (0-50); LDL Cholesterol Calculated 123 mg/dL (<100); Potassium 4.2 mmol/L (3.4-5.1); Sodium 137 mmol/L (137-145); Triglycerides 225 mg/dL (35-150)
[2020-08-07 10:00] LABS: Creatinine Urine Random 97.4 mg/dL
[2020-08-07 10:04] LABS: Microalbumi Creatinin Ratio Ur 20.5 ug/mg CR (<30)
== END ==
PROVIDERS: PCP Nurse Practitioner Family; Referring Provider Nurse Practitioner Family; Visit Provider Nurse Practitioner Family
DX: Z00.00 Encounter for general adult medical examination without abnormal findings (principal); E11.9 Type 2 diabetes mellitus without complications; Z13.6 Encounter for screening for cardiovascular disorders
CPT/HCPCS: 36415; 80053; 80061; 82043; 82570; 83036

== ENCOUNTER → 2021-03-13 07:13 | Outpatient (CLI) | payer OTHER, SELFPAY ==
[2021-03-13 08:18] LABS: Add Manual Diff / Slide Review NO; Basophils Absolute Auto 100 /uL (0-100); Basophils Percent Auto 0.9 % (0-2); Eosinophils Absolute Auto 300 /uL (0-450); Eosinophils Percent Auto 3.9 % (2-4); Hematocrit 41.7 % (36-46); Lymphocytes Absolute Auto 1500 /uL (1100-4500); Lymphocytes Percent Auto 20.9 % (25-40); Mean Corpuscular HGB Conc 33.5 % (30-36); Mean Corpuscular Hemoglobin 29.3 PG (26-34); Mean Corpuscular Volume 87.5 fL (80-100); Monocytes Absolute Auto 500 /uL (0-900); Monocytes Percent Auto 6.9 % (3-14); Neutrophils Absolute Auto 4900 /uL (1500-7000); Neutrophils Percent Auto 67.4 % (50-75); Platelet Count 255 X10^3/uL (150-400); Red Blood Cell Count 4.77 X10^6/uL (4.0-5.2); White Blood Cell Count 7.3 X10^3/uL (4.5-11.0)
[2021-03-13 08:40] LABS: Alanine Aminotransferase 29 IU/L (<35); Albumin 4.3 g/dL (3.5-5.0); Albumin Globulin Ratio 1.7 (1.0-2.8); Alkaline Phosphatase 66 U/L (38-126); Aspartate Aminotransferase 27 IU/L (14-36); BUN Creatinine Ratio 27.9 (6-22); Bilirubin Total 0.4 mg/dL (0.2-1.3); Blood Urea Nitrogen 12 mg/dL (7-17); Calcium 9.6 mg/dL (8.4-10.2); Carbon Dioxide 28 mmol/L (22-32); Chloride 100 mmol/L (98-107); Cholesterol 183 mg/dL (140-199); Estimated Glomerular Filt Rate > 60.0 mL/min (>60); Globulin 2.6 g/dL (1.7-4.1); Glucose 198 mg/dL (70-100); HDL Cholesterol 41 mg/dL (40-60); HEMOLYSIS < 15 (0-50); LDL Cholesterol Calculated 99 mg/dL (<100); Potassium 4.3 mmol/L (3.4-5.1); Sodium 139 mmol/L (137-145); Total Protein 6.9 g/dL (6.3-8.2); Triglycerides 213 mg/dL (35-150)
[2021-03-13 08:47] LABS: Hemoglobin A1C% w Est Avg Glu 8.3 % (4.0-6.0)
[2021-03-16 12:49] LABS: Fecal Immunochemical Test Negative (Negative)
== END ==
PROVIDERS: PCP Nurse Practitioner Family; Referring Provider Nurse Practitioner Family; Visit Provider Nurse Practitioner Family
DX: E11.9 Type 2 diabetes mellitus without complications (principal); Z12.11 Encounter for screening for malignant neoplasm of colon
CPT/HCPCS: 36415; 80053; 80061; 82274; 83036; 85025

== ENCOUNTER → 2021-05-18 08:10 | Outpatient (CLI) | payer OTHER, SELFPAY ==
[2021-05-18 09:42] LABS: Hemoglobin A1C% w Est Avg Glu 9.5 % (4.0-6.0)
[2021-05-18 09:56] LABS: Alanine Aminotransferase 29 IU/L (<35); Albumin 4.3 g/dL (3.5-5.0); Albumin Globulin Ratio 1.5 (1.0-2.8); Alkaline Phosphatase 62 U/L (38-126); Aspartate Aminotransferase 29 IU/L (14-36); Bilirubin Total 0.5 mg/dL (0.2-1.3); Blood Urea Nitrogen 10 mg/dL (7-17); Calcium 9.6 mg/dL (8.4-10.2); Carbon Dioxide 28 mmol/L (22-32); Chloride 102 mmol/L (98-107); Estimated Glomerular Filt Rate > 60.0 mL/min (>60); Globulin 2.8 g/dL (1.7-4.1); Glucose 204 mg/dL (70-100); HEMOLYSIS < 15 (0-50); Potassium 4.6 mmol/L (3.4-5.1); Sodium 136 mmol/L (137-145); Total Protein 7.1 g/dL (6.3-8.2)
== END ==
PROVIDERS: PCP Nurse Practitioner Family; Referring Provider Nurse Practitioner Family; Visit Provider Nurse Practitioner Family
DX: E11.9 Type 2 diabetes mellitus without complications (principal); Z00.00 Encounter for general adult medical examination without abnormal findings; Z85.3 Personal history of malignant neoplasm of breast
CPT/HCPCS: 36415; 80053; 83036

== ENCOUNTER → 2021-06-09 17:13 | Outpatient (CLI) | payer OTHER, SELFPAY ==
--- NOTE | 2021-06-09 17:14 | DI.MG.S_ITS ---
BILATERAL DIGITAL SCREENING MAMMOGRAM 3D/2D WITH CAD: 06/09/2021 CLINICAL: Routine screening. Personal history of left breast cancer. Family history of breast cancer. Comparison is made to exams dated: 06/06/2020 mammogram, 06/05/2019 mammogram, and 06/01/2018 mammogram - [facility]. There are scattered fibroglandular elements in both breasts. Current study was also evaluated with a Computer Aided Detection (CAD) system. There are benign calcifications in both breasts. There also are benign post operative findings in the left breast. No significant masses, calcifications, or other findings are seen in either breast. There has been no significant interval change. IMPRESSION: BENIGN There is no mammographic evidence of malignancy. A 1 year screening mammogram is recommended. This exam was interpreted at Station ID: [id number]. NOTE: For mammograms, a report in lay terms will be sent to the patient. Approximately 15% of breast malignancies will not be visualized mammographically. In the management of a palpable breast mass, a negative mammogram must not discourage biopsy of a clinically suspicious lesion. Electronically Signed By: Jerald puga/christine:06/10/2021 08:44:14 copy to: LEANDRO BOGGS letter sent: Normal Exam ACR BI-RADS Category 2: Benign Finding(s) 3342F
== END ==
PROVIDERS: PCP Nurse Practitioner Family; Referring Provider Nurse Practitioner Family; Visit Provider Nurse Practitioner Family
DX: Z12.31 Encounter for screening mammogram for malignant neoplasm of breast (principal); Z85.3 Personal history of malignant neoplasm of breast; Z80.3 Family history of malignant neoplasm of breast
CPT/HCPCS: 77063; 77067

== ENCOUNTER → 2021-08-20 07:00 | Outpatient (CLI) | payer OTHER, SELFPAY ==
[2021-08-20 08:07] LABS: Add Manual Diff / Slide Review NO; Basophils Absolute Auto 100 /uL (0-100); Basophils Percent Auto 1.1 % (0-2); Eosinophils Absolute Auto 300 /uL (0-450); Eosinophils Percent Auto 5.1 % (2-4); Hematocrit 41.8 % (36-46); Hemoglobin 14.4 g/dL (12.0-16.0); Lymphocytes Absolute Auto 1600 /uL (1100-4500); Lymphocytes Percent Auto 28.2 % (25-40); Mean Corpuscular HGB Conc 34.3 % (30-36); Mean Corpuscular Hemoglobin 29.6 PG (26-34); Mean Corpuscular Volume 86.2 fL (80-100); Monocytes Absolute Auto 400 /uL (0-900); Monocytes Percent Auto 7.8 % (3-14); Neutrophils Absolute Auto 3200 /uL (1500-7000); Neutrophils Percent Auto 57.8 % (50-75); Platelet Count 232 X10^3/uL (150-400); Red Blood Cell Count 4.86 X10^6/uL (4.0-5.2); Red Cell Distribution Width 12.4 % (11.6-14.8); White Blood Cell Count 5.5 X10^3/uL (4.5-11.0)
[2021-08-20 08:19] LABS: Hemoglobin A1C% w Est Avg Glu 10.2 % (4.0-6.0)
[2021-08-20 08:22] LABS: Alanine Aminotransferase 25 IU/L (<35); Albumin 4.3 g/dL (3.5-5.0); Albumin Globulin Ratio 1.8 (1.0-2.8); Alkaline Phosphatase 54 U/L (38-126); Aspartate Aminotransferase 24 IU/L (14-36); BUN Creatinine Ratio 36.1 (6-22); Bilirubin Total 0.6 mg/dL (0.2-1.3); Blood Urea Nitrogen 13 mg/dL (7-17); Carbon Dioxide 25 mmol/L (22-32); Chloride 102 mmol/L (98-107); Cholesterol 135 mg/dL (140-199); Estimated Glomerular Filt Rate > 60 mL/min (>60); Globulin 2.4 g/dL (1.7-4.1); Glucose 212 mg/dL (70-100); HDL Cholesterol 35 mg/dL (40-60); HEMOLYSIS < 15 (0-50); LDL Cholesterol Calculated 71 mg/dL (<100); Potassium 4.2 mmol/L (3.4-5.1); Sodium 139 mmol/L (137-145); Total Protein 6.7 g/dL (6.3-8.2); Triglycerides 144 mg/dL (35-150)
[2021-08-20 08:38] LABS: Free T3, Triiodothyronine Free 3.54 pg/mL (2.77-5.27)
[2021-08-20 08:46] LABS: Creatinine Urine Random 119.6 mg/dL
[2021-08-20 08:50] LABS: Microalbumi Creatinin Ratio Ur 31.7 ug/mg CR (<30); Microalbumin Urine Random 3.8 mg/dL (0-1.6)
[2021-08-20 08:52] LABS: Thyroid Stimulating Hormone 2.37 uIU/mL (0.47-4.68)
== END ==
PROVIDERS: PCP Nurse Practitioner; Referring Provider Nurse Practitioner; Visit Provider Nurse Practitioner
DX: E11.9 Type 2 diabetes mellitus without complications (principal); E78.2 Mixed hyperlipidemia; R03.0 Elevated blood-pressure reading, without diagnosis of hypertension
CPT/HCPCS: 36415; 80053; 80061; 82043; 82570; 83036; 84439; 84443; 84481; 85025

== ENCOUNTER → 2021-10-20 07:04 | Outpatient (CLI) | payer OTHER, SELFPAY ==
[2021-10-20 08:13] LABS: Glucose 171 mg/dL (70-100)
== END ==
PROVIDERS: PCP Nurse Practitioner; Referring Provider Nurse Practitioner; Visit Provider Nurse Practitioner
DX: E11.9 Type 2 diabetes mellitus without complications (principal)
CPT/HCPCS: 36415; 82947; 83036

== ENCOUNTER → 2021-11-06 08:08 | Outpatient (CLI) | payer OTHER, SELFPAY ==
--- NOTE | 2021-11-06 08:09 | DI.ECHO.S_ITS ---
[facility] +---------+ : : [address] : [address] [place] : : : : [id number] : : : : Phone: [phone]+ Echocardiogram Report + + :Name: ALLIE BANG Study Date: 11/06/2021 Height: 65 in : :[facility] ReadingLocation: Weight: 218 lb : : Gender: Female BSA: 2.1 m2 : :: 1960 Age: 61 yrs BP: 129/77 mmHg: :Reason For Study: HYPERTENSION : :Ordering Physician: KRISTINE, : :ALECIA Performed By: Ara Wang : :Referring: ALECIA CARMONA : + + Interpretation Summary The left ventricle is grossly normal size. The left ventricle is hyperdynamic. The ejection fraction is estimated to be 70-75%. No significant LV outflow tract obstruction. Previous LVEF 65 to 70%. Increase aortic valve velocity and pulmonary valve velocity due to hyperdynamic LV and vigorous RV outflow tract contraction without any significant obstruction. No significant aortic valve or pulmonary valve stenosis. Overall no significant valvular pathology seen. The IVC is of normal diameter and collapses greater than 50% with a sniff. This suggests a low right atrial pressure of 3 mm Hg. Procedure: Images from the parasternal window were difficult to obtain and are suboptimal in quality. Most of the acoustic windows were suboptimal, but the best imaging was obtained from the apical window. Comparison is made with the echocardiogram of 03/01/2016. The patient was in sinus rhythm with heart rates between 75-100 bpm during the exam. Left Ventricle: The left ventricle is grossly normal size. Left ventricular wall thickness is borderline increased. There is no thrombus. The ejection fraction is estimated to be 70-75%. The left ventricle is hyperdynamic. There are no focal wall motion abnormalities. Diastolic parameters suggest a relaxation abnormality of the left ventricle, consistent with probable normal filling pressures. Right Ventricle: The right ventricle is normal in size and function. RV outflow tract has vigorous contraction. Atria: The left atrial size is normal. Right atrial size is normal. There is no Doppler evidence for an interatrial shunt. Mitral Valve: There is mild mitral annular calcification. There is trace mitral regurgitation. Aortic Valve: The aortic valve is not well visualized. There is no hemodynamically significant valvular aortic stenosis. No aortic regurgitation is present. Tricuspid Valve: The tricuspid valve is not well visualized, but is grossly normal. There is trace tricuspid regurgitation. Pulmonary artery pressures cannot be estimated because of the lack of a measurable TR jet velocity. Pulmonic Valve: The pulmonic valve is not well visualized. There is no pulmonic valvular regurgitation. Great Vessels: The aortic root is normal size. The dimensions of the ascending aorta are normal. The IVC is of normal diameter and collapses greater than 50% with a sniff. This suggests a low right atrial pressure of 3 mm Hg. Pericardium/ Pleura There is no pericardial effusion. There is an anterior echo-free space consistent with a fat pad. There is no pleural effusion. MMode/2D Measurements & Calculations LVIDd: 4.7 cm LVOT diam: 2.0 cm IVSd: 1.0 cm asc Aorta Diam: 3.3 cm LVPWd: 0.93 cm Ao Arch Diam (Prox Trans): 2.4 cm LV mitchell. diameter/BSA (cm/m^2): 2.3 LA A2 area: 16.4 cm2 RA long axis: 5.1 cm LA A4 area: 19.7 cm2 RA area: 15.3 cm2 LA length (vol): 5.7 cm RA vol: 38.7 ml LA vol: 48.6 ml RA : 18.9 ml/m2 LA vol index: 23.7 ml/m2 IVC diam: 1.1 cm RVD1 (basal): 3.1 cm RVD2 (mid): 3.0 cm TAPSE: 2.4 cm Doppler Measurements & Calculations Ao V2 max: 207.8 cm/sec MV E max juan c: 76.2 cm/sec Ao V2 mean: 127.1 cm/sec MV A max juan c: 107.2 cm/sec Ao max P.3 mmHg MV E/A: 0.71 Ao mean P.8 mmHg Med Peak E' Juan C: 6.3 cm/sec Ao V2 VTI: 34.1 cm E/E' med: 12.1 Lat Peak E' Juan C: 5.8 cm/sec E/E' lat: 13.2 E/e' average: 12.6 MV dec time: 0.18 sec PA V2 max: 154.7 cm/sec PA V2 mean: 108.8 cm/sec PA mean P.2 mmHg Reading Physician:03:00 PM
== END ==
PROVIDERS: PCP Nurse Practitioner; Referring Provider Nurse Practitioner; Visit Provider Nurse Practitioner
DX: I10 Essential (primary) hypertension (principal)
CPT/HCPCS: 93306

== ENCOUNTER → 2021-12-31 07:15 | Outpatient (CLI) | payer OTHER, SELFPAY ==
[2021-12-31 08:58] LABS: Hemoglobin A1C% w Est Avg Glu 7.3 % (4.0-6.0)
[2021-12-31 09:01] LABS: Creatinine Urine Random 107.7 mg/dL
[2021-12-31 09:07] LABS: Microalbumi Creatinin Ratio Ur 22.2 ug/mg CR (<30); Microalbumin Urine Random 2.4 mg/dL (0-1.6)
[2021-12-31 09:37] LABS: Alanine Aminotransferase 28 IU/L (<35); Albumin 4.2 g/dL (3.5-5.0); Albumin Globulin Ratio 1.6 (1.0-2.8); Alkaline Phosphatase 47 U/L (38-126); Aspartate Aminotransferase 28 IU/L (14-36); BUN Creatinine Ratio 30.4 (6-22); Bilirubin Total 0.4 mg/dL (0.2-1.3); Blood Urea Nitrogen 14 mg/dL (7-17); Calcium 9.1 mg/dL (8.4-10.2); Carbon Dioxide 26 mmol/L (22-32); Chloride 104 mmol/L (98-107); Cholesterol 133 mg/dL (140-199); Estimated Glomerular Filt Rate > 60 mL/min (>60); Globulin 2.6 g/dL (1.7-4.1); Glucose 153 mg/dL (70-100); HDL Cholesterol 36 mg/dL (40-60); HEMOLYSIS < 15 (0-50); LDL Cholesterol Calculated 67 mg/dL (<100); Potassium 4.5 mmol/L (3.4-5.1); Sodium 139 mmol/L (137-145); Total Protein 6.8 g/dL (6.3-8.2); Triglycerides 148 mg/dL (35-150)
== END ==
PROVIDERS: PCP Nurse Practitioner; Referring Provider Nurse Practitioner; Visit Provider Nurse Practitioner
DX: E11.9 Type 2 diabetes mellitus without complications (principal); E78.2 Mixed hyperlipidemia; I10 Essential (primary) hypertension; Z79.899 Other long term (current) drug therapy
CPT/HCPCS: 36415; 80053; 80061; 82043; 82570; 83036

== ENCOUNTER → 2022-04-28 08:13 | Outpatient (CLI) | payer OTHER, SELFPAY ==
[2022-04-28 09:19] LABS: Alanine Aminotransferase 26 IU/L (<35); Albumin 4.3 g/dL (3.5-5.0); Albumin Globulin Ratio 1.4 (1.0-2.8); Alkaline Phosphatase 47 U/L (38-126); Aspartate Aminotransferase 20 IU/L (14-36); BUN Creatinine Ratio 31.8 (6-22); Bilirubin Total 0.3 mg/dL (0.2-1.3); Blood Urea Nitrogen 14 mg/dL (7-17); Calcium 9.3 mg/dL (8.4-10.2); Carbon Dioxide 23 mmol/L (22-32); Chloride 104 mmol/L (98-107); Cholesterol 158 mg/dL (140-199); Estimated Glomerular Filt Rate > 60 mL/min (>60); Glucose 132 mg/dL (80-110); HDL Cholesterol 40 mg/dL (40-60); HEMOLYSIS < 15 (0-50); Hemoglobin A1C% w Est Avg Glu 6.6 % (4.0-6.0); LDL Cholesterol Calculated 89 mg/dL (<100); Potassium 4.7 mmol/L (3.4-5.1); Sodium 139 mmol/L (137-145); Total Protein 7.3 g/dL (6.3-8.2); Triglycerides 143 mg/dL (35-150)
[2022-04-29 17:28] LABS: Hep C Virus Ab w/Reflex Quant NEGATIVE s/c (NEGATIVE)
== END ==
PROVIDERS: PCP Nurse Practitioner; Referring Provider Nurse Practitioner; Visit Provider Nurse Practitioner
DX: E11.9 Type 2 diabetes mellitus without complications (principal); E78.2 Mixed hyperlipidemia; I10 Essential (primary) hypertension; Z79.899 Other long term (current) drug therapy; Z11.59 Encounter for screening for other viral diseases
CPT/HCPCS: 36415; 80053; 80061; 82043; 82570; 83036; 86803

== ENCOUNTER → 2022-06-17 14:57 | Outpatient (CLI) | payer OTHER, SELFPAY ==
--- NOTE | 2022-06-17 | DI.MG.S_ITS ---
BILATERAL DIGITAL SCREENING MAMMOGRAM 3D/2D WITH CAD: 06/17/2022 CLINICAL: Routine screening. Personal history of left breast cancer. Family history of breast cancer. Comparison is made to exams dated: 06/09/2021 mammogram, 06/06/2020 mammogram, and 06/05/2019 mammogram - [facility]. There are scattered areas of fibroglandular density in both breasts (category b / 25%-50% glandular tissue). Current study was also evaluated with a Computer Aided Detection (CAD) system. There are benign calcifications in both breasts. There also are benign post operative findings in the left breast. No significant masses, calcifications, or other findings are seen in either breast. There has been no significant interval change. IMPRESSION: BENIGN There is no mammographic evidence of malignancy. A 1 year screening mammogram is recommended. This exam was interpreted at Station ID: [id number]. NOTE: For mammograms, a report in lay terms will be sent to the patient. Approximately 15% of breast malignancies will not be visualized mammographically. In the management of a palpable breast mass, a negative mammogram must not discourage biopsy of a clinically suspicious lesion. Electronically Signed By: Keely fajardo/christine:06/18/2022 10:03:38 copy to: LEANDRO BOGGS letter sent: Normal Exam ACR BI-RADS Category 2: Benign Finding(s) 3342F
== END ==
PROVIDERS: PCP Nurse Practitioner; Referring Provider Nurse Practitioner; Visit Provider Nurse Practitioner
DX: Z12.31 Encounter for screening mammogram for malignant neoplasm of breast (principal); Z85.3 Personal history of malignant neoplasm of breast; Z80.3 Family history of malignant neoplasm of breast
CPT/HCPCS: 77063; 77067

== ENCOUNTER → 2022-08-12 07:01 | Outpatient (CLI) | payer OTHER, SELFPAY ==
[2022-08-12 08:54] LABS: Creatinine Urine Random 91.8 mg/dL
[2022-08-12 08:58] LABS: Microalbumi Creatinin Ratio Ur 9.8 ug/mg CR (<30); Microalbumin Urine Random 0.9 mg/dL (0-1.6)
[2022-08-12 09:02] LABS: Alanine Aminotransferase 29 IU/L (<35); Albumin Globulin Ratio 1.4 (1.0-2.8); Alkaline Phosphatase 45 U/L (38-126); Aspartate Aminotransferase 23 IU/L (14-36); BUN Creatinine Ratio 34.1 (6-22); Bilirubin Total 0.4 mg/dL (0.2-1.3); Blood Urea Nitrogen 15 mg/dL (7-17); Calcium 9.1 mg/dL (8.4-10.2); Carbon Dioxide 27 mmol/L (22-32); Chloride 101 mmol/L (98-107); Cholesterol 146 mg/dL (140-199); Estimated Glomerular Filt Rate > 60 mL/min (>60); Globulin 2.8 g/dL (1.7-4.1); Glucose 132 mg/dL (80-110); HDL Cholesterol 38 mg/dL (40-60); HEMOLYSIS < 15 (0-50); LDL Cholesterol Calculated 79 mg/dL (<100); Potassium 4.7 mmol/L (3.4-5.1); Sodium 138 mmol/L (137-145); Total Protein 6.8 g/dL (6.3-8.2); Triglycerides 143 mg/dL (35-150)
[2022-08-12 09:10] LABS: Free T4, Direct Thyroxine 1.23 ng/dL (0.78-2.19)
[2022-08-12 09:23] LABS: Thyroid Stimulating Hormone 2.43 uIU/mL (0.47-4.68)
[2022-08-13 01:07] LABS: Labcorp Hemoglobin (Hb) A1c 6.7 % (4.8-5.6)
== END ==
PROVIDERS: PCP Nurse Practitioner; Referring Provider Nurse Practitioner; Visit Provider Nurse Practitioner
DX: E11.9 Type 2 diabetes mellitus without complications (principal); E78.2 Mixed hyperlipidemia; F41.9 Anxiety disorder, unspecified; I10 Essential (primary) hypertension
CPT/HCPCS: 36415; 80053; 80061; 82043; 82570; 83036; 84439; 84443; 84481

== ENCOUNTER → 2022-11-09 08:44 | Outpatient (CLI) | payer OTHER, SELFPAY ==
[2022-11-09 09:34] LABS: Alanine Aminotransferase 29 IU/L (<35); Albumin 4.2 g/dL (3.5-5.0); Albumin Globulin Ratio 1.5 (1.0-2.8); Alkaline Phosphatase 50 U/L (38-126); Aspartate Aminotransferase 23 IU/L (14-36); BUN Creatinine Ratio 37.8 (6-22); Bilirubin Total 0.4 mg/dL (0.2-1.3); Blood Urea Nitrogen 17 mg/dL (7-17); Calcium 9.3 mg/dL (8.4-10.2); Carbon Dioxide 24 mmol/L (22-32); Chloride 103 mmol/L (98-107); Cholesterol 145 mg/dL (140-199); Estimated Glomerular Filt Rate > 60 mL/min (>60); Globulin 2.8 g/dL (1.7-4.1); Glucose 133 mg/dL (80-110); HDL Cholesterol 38 mg/dL (40-60); HEMOLYSIS < 15 (0-50); LDL Cholesterol Calculated 79 mg/dL (<100); Potassium 4.4 mmol/L (3.4-5.1); Sodium 136 mmol/L (137-145); Triglycerides 138 mg/dL (35-150)
[2022-11-10 05:30] LABS: x Labcorp Estim. Avg Glu (eAG) 151 mg/dL (.); x Labcorp Hemoglobin A1c 6.9 % (4.8-5.6)
[2022-11-10 14:36] LABS: Fecal Immunochemical Test Negative (Negative)
== END ==
PROVIDERS: PCP Nurse Practitioner; Referring Provider Nurse Practitioner; Visit Provider Nurse Practitioner
DX: E78.2 Mixed hyperlipidemia (principal); E11.9 Type 2 diabetes mellitus without complications; I10 Essential (primary) hypertension; Z79.899 Other long term (current) drug therapy; Z12.11 Encounter for screening for malignant neoplasm of colon
CPT/HCPCS: 36415; 80053; 80061; 82274; 83036

== ENCOUNTER → 2023-03-11 08:44 | Outpatient (CLI) | payer OTHER, SELFPAY ==
[2023-03-11 10:16] LABS: Creatinine Urine Random 103.4 mg/dL
[2023-03-11 10:17] LABS: Hemoglobin A1C% w Est Avg Glu 7.7 % (4.0-6.0)
[2023-03-11 10:19] LABS: Microalbumi Creatinin Ratio Ur 77.3 ug/mg CR (<30)
[2023-03-11 10:42] LABS: Alanine Aminotransferase 29 IU/L (<35); Albumin 4.1 g/dL (3.5-5.0); Albumin Globulin Ratio 1.6 (1.0-2.8); Alkaline Phosphatase 45 U/L (38-126); Aspartate Aminotransferase 29 IU/L (14-36); BUN Creatinine Ratio 34.1 (6-22); Bilirubin Total 0.5 mg/dL (0.2-1.3); Blood Urea Nitrogen 15 mg/dL (7-17); Calcium 9.4 mg/dL (8.4-10.2); Carbon Dioxide 23 mmol/L (22-32); Chloride 104 mmol/L (98-107); Cholesterol 116 mg/dL (140-199); Estimated Glomerular Filt Rate > 60 mL/min (>60); Globulin 2.5 g/dL (1.7-4.1); Glucose 125 mg/dL (80-110); HDL Cholesterol 36 mg/dL (40-60); HEMOLYSIS < 15 (0-50); LDL Cholesterol Calculated 53 mg/dL (<100); Potassium 4.4 mmol/L (3.4-5.1); Sodium 138 mmol/L (137-145); Total Protein 6.6 g/dL (6.3-8.2); Triglycerides 135 mg/dL (35-150)
[2023-03-11 10:58] LABS: Free T3, Triiodothyronine Free 4.31 pg/mL (2.77-5.27); Free T4, Direct Thyroxine 1.62 ng/dL (0.78-2.19)
[2023-03-11 11:12] LABS: Thyroid Stimulating Hormone 1.88 uIU/mL (0.47-4.68)
[2023-03-11 11:30] LABS: HIV 1 & 2 Ab/Ag 4th Gen Combo NEGATIVE (NEGATIVE)
== END ==
PROVIDERS: PCP Nurse Practitioner; Referring Provider Nurse Practitioner; Visit Provider Nurse Practitioner
DX: Z11.4 Encounter for screening for human immunodeficiency virus [HIV] (principal); I10 Essential (primary) hypertension; E78.2 Mixed hyperlipidemia; Z79.899 Other long term (current) drug therapy; E11.9 Type 2 diabetes mellitus without complications
CPT/HCPCS: 36415; 80053; 80061; 82043; 82570; 83036; 84439; 84443; 84481; 87389

== ENCOUNTER 2023-06-08 17:22 | Emergency (ER) | payer OTHER, SELFPAY ==
[2023-06-08 17:37] VITALS: BP 141/78; PULSE 77; RESP 18; TEMP 37.2; O2SAT 96; BMI 36.6
[2023-06-08] MEDS: TET,DIPH,PERTUSS(ACELL),VAC/PF 0.5 ML SYRINGE IM (17:54)
--- NOTE | 2023-06-08 18:29 | ED_ITS ---
HPI - Wound/Laceration General Chief Complaint: Wound/Laceration Stated Complaint: fall, face laceration Time Seen by Provider: 06/08/23 18:05 Source: patient Mode of arrival: Ambulatory History of Present Illness HPI narrative: Patient is a 63-year-old female who is here for evaluation of injuries that she sustained when she tripped over a curb and fell forward and hit her face on the ground. No loss of consciousness. Not on blood thinners. No loose teeth but does think that she cracked an upper tooth. She does have a cut to her lower lip. No neck pain. No other injuries from the event. Related Data Previous Rx's Medication Instructions Recorded glucometer home kit #1 ea 05/06/21 blood pressure test kit-large #1 ea 09/03/21 metformin 500 mg tablet,extended See Rx Instructions .Route 12/13/22 release 24 hr .COMPLEX #360 tabs fenofibrate 160 mg tablet 160 mg PO QDAY #90 tabs 01/20/23 rosuvastatin 20 mg tablet 20 mg PO DAILY #90 tabs 01/20/23 lisinopril 5 mg tablet 5 mg PO DAILY #90 tabs 02/18/23 glipizide 10 mg tablet 10 mg PO BID #90 tabs 03/14/23 semaglutide 0.25 mg or 0.5 mg (2 0.25 mg (0.368 mL) SUBCUT QWEEK 03/14/23 mg/3 mL) subcutaneous pen injector E11.9 NIDDM #3 mL lancets (Microlet Lancet) #200 ea 06/07/23 blood sugar diagnostic (Blood #400 ea 06/08/23 Glucose Test strips) Allergies Allergy/AdvReac Type Severity Reaction Status Date / Time strawberry Allergy Severe REDNESS Verified 03/14/23 15:03 AND SWOLLEN LIPS nitrofurantoin Allergy Intermediate UPSET Verified 03/14/23 15:03 STOMACH atorvastatin Allergy Mild MYALGIAS Verified 03/14/23 15:03 codeine Allergy Mild VOMITING Verified 03/14/23 15:03 Penicillins Allergy Mild RASH Verified 03/14/23 15:03 prednisone AdvReac Intermediate tachycardia Verified 03/14/23 15:03 Review of Systems Constitutional Constitutional: Reports system reviewed and no additional complaints, except as documented ENT Ears, Nose, Mouth, and Throat: Reports system reviewed and no additional complaints, except as documented Musculoskeletal Musculoskeletal: Reports system reviewed and no additional complaints, except as documented Integumentary/Breasts Skin/Breast: Reports system reviewed and no additional complaints, except as documented Neurologic Neurologic: Reports system reviewed and no additional complaints, except as documented Hematologic/Lymphatic On Anticoagulants: No Patient History Medical History Noncompliance with medication regimen Hypertension Family History Brother Colon cancer Mother Age: 94 Hyperlipidemia Personal history of malignant neoplasm of breast Sister Age: 74 Hyperlipidemia Social History Smoking Status: Never smoker second hand exposure: No alcohol intake: current substance use type: does not use eating out: 1-3 times/week Type(s) of exercise: walking and normal ROM and activity Smoking Status: Never smoker alcohol intake frequency: holidays/special occasions only Substance Use Type: does not use Exam Initial Vital Signs Initial Vital Signs: Vital Signs Temperature 98.9 F 06/08/23 17:37 Pulse Rate 77 06/08/23 17:37 Respiratory Rate 18 06/08/23 17:37 Blood Pressure 141/78 H 06/08/23 17:37 Pulse Oximetry 96 06/08/23 17:37 Oxygen Delivery Method Room Air 06/08/23 17:37 HENME Nose: external nose normal, nares normal, septum normal and No epistaxis Face and sinus: face symmetric and no maxillary instability Mouth: oral mucosae normal, tongue normal and lip abnormal (0.5 cm laceration on the inside of the lip.) Teeth and gingiva: other (Left upper incisor has a small crack) Eyes Periorbital: periorbital findings normal Back/Spine/Pelvis Cervical Spine: No cervical spinal tenderness Skin Other: Skin abrasions on the outside of the lower lip. There are 2 very small (0.25 cm or less) wounds to the outside of the lip. Extrem General: normal to inspection and capillary refill normal Scores Somali CT Head Rule Age <16 years old: No Patient on blood thinners: No Seizure after injury: No Exclusion: Patient NOT Excluded, Proceed to next steps GCS < 15 at 2 hr post trauma: No Suspected open or depressed skull fracture: No Any sign of basilar skull fracture (hemotympanum, raccoon eyes, Santiago's sign, CSF husam-/rhinorrhea): No Two or more episodes of vomiting: No Age greater or equal to 65 years: No Retrograde amnesia to the event greater or equal to 30 min: No Dangerous Mechanism (pedestrian vs. mv, occupant ejected from mv, fall from >3 ft or > 5 stairs): No Recommendation: CT unnecessary GCS [place] coma scale eye opening: Spontaneous Mendoza coma scale verbal response: Orientated Mendoza coma scale motor response: Obey commands [place] coma scale total score: 15 Nexus Score for C-Spine Focal Neurologic deficit present: No Midline spinal tenderness present: No Altered level of conciousness present: No Intoxication present: No Distracting Injury Present: No Nexus Criteria for C-spine: 0 Course Orders Ordered: Discontinued Medications Diphtheria/Tetanus/Acell Pertussis (Tet,Diph,Pertuss(Acell),Vac/Pf 0.5 Ml Syringe) 0.5 ml IM .ONCE ONE Stop: 06/08/23 17:47 Last Admin: 06/08/23 17:54 Dose: 0.5 ml Documented By: FRANK Vital Signs Vital signs: Vital Signs - 8 hr 06/08/23 17:37 06/08/23 18:37 Temperature 98.9 F Pulse Rate 77 71 Respiratory Rate 18 Blood Pressure 141/78 H 115/55 L Pulse Oximetry 96 94 Oxygen Delivery Method Room Air Room Air MDM - Wound/Laceration MDM Narrative Medical decision making narrative: Patient does have a cut to the inside of the lower lip that we will hold on plac ing any sutures in for now. She was skin abrasions on the outside that he no specific intervention here in the ER. She does have a small chip of the left upper incisor tooth that she was told she needed to contact her dentist to have this further evaluated. Cervical spine is cleared by nexus criteria. We will hold on a head CT for now. She reports no other injuries from the event. No extremity injuries. We discussed care of the wound on the inside of her lip. Discussed return precautions and follow-up instructions. She expressed understanding and agreement. Discharge Plan Departure Patient Disposition: Home Clinical Impression: Laceration of lower lip, Abrasion of skin Activity Restrictions/Additional Instructions: I do recommend soft foods for the next couple days. Also recommend that you take care with brushing your teeth. You should follow-up with the dentist regarding your chipped tooth. I highly recommend you put ice over the area. Return to the emergency department for new symptoms. Prescriptions: No Action metformin 500 mg tablet extended release 24 hr See Rx Instructions .ROUTE .COMPLEX Qty: 360 3RF Dose Instruction: TAKE FOUR TABLETS (2,000 MG) BY MOUTH DAILY WITH FOOD FOR DIABETES Rx Instructions: TAKE FOUR TABLETS (2,000 MG) BY MOUTH DAILY WITH FOOD FOR DIABETES fenofibrate 160 mg tablet 160 mg PO QDAY Qty: 90 3RF Rx Instructions: Take 1 tab daily for hyperlipidemia rosuvastatin 20 mg tablet 20 mg PO DAILY Qty: 90 3RF Rx Instructions: Take 1 tab daily at bedtime for elevated cholesterol lisinopril 5 mg tablet 5 mg PO DAILY Qty: 90 3RF Rx Instructions: Take 1 tab at bedtime daily for blood pressure, goal <130/80 consistently (DME) lancets [Microlet Lancet] Misc See Rx Instructions .ROUTE .COMPLEX Qty: 200 3RF Dose Instruction: USE ONE LANCET WITH HOME GLUCOMETER KIT TO TEST BLOOD SUGAR TWICE A DAY Rx Instructions: USE ONE LANCET WITH HOME GLUCOMETER KIT TO TEST BLOOD SUGAR TWICE A DAY (DME) Blood Glucose Test Strip See Rx Instructions .Route Qty: 400 3RF Rx Instructions: Use to check blood glucose twice daily (DME) glucometer home kit Qty: 1 0RF Rx Instructions: Use to test blood sugar twice daily (DME) blood pressure test kit-large Kit See Rx Instructions .Route Qty: 1 0RF Rx Instructions: As directed semaglutide 0.25 mg or 0.5 mg (2 mg/3 mL) pen injector 0.25 mg SUBCUT QWEEK Qty: 3 0RF Rx Instructions: for 4 weeks, then increase to 0.5mg weekly glipizide 10 mg tablet 10 mg PO BID Qty: 90 3RF Rx Instructions: Take 1 tab twice per day with food Referrals: Liudmila Cruz ARNP [Primary Care Provider] - Stand Alone Forms: Patient Portal/API
[2023-06-08 18:37] VITALS: BP 115/55; PULSE 71; O2SAT 94
== END 2023-06-08 18:37 | disposition home or self-care (01) ==
PROVIDERS: Emergency Provider Emergency Medicine; PCP Nurse Practitioner
DX: S01.511A Laceration without foreign body of lip, initial encounter (principal); S00.81XA Abrasion of other part of head, initial encounter; W01.0XXA Fall on same level from slipping, tripping and stumbling without subsequent striking against object, initial encounter; Z79.899 Other long term (current) drug therapy; Z23 Encounter for immunization
CPT/HCPCS: 90471; 99283; 90715

== ENCOUNTER → 2023-06-11 09:28 | Outpatient (CLI) | payer OTHER, SELFPAY ==
[2023-06-11 10:48] LABS: Alanine Aminotransferase 31 IU/L (<35); Albumin 4.2 g/dL (3.5-5.0); Albumin Globulin Ratio 1.4 (1.0-2.8); Alkaline Phosphatase 53 U/L (38-126); Aspartate Aminotransferase 28 IU/L (14-36); Bilirubin Total 0.6 mg/dL (0.2-1.3); Blood Urea Nitrogen 16 mg/dL (7-17); Calcium 9.3 mg/dL (8.4-10.2); Carbon Dioxide 26 mmol/L (22-32); Chloride 102 mmol/L (98-107); Cholesterol 145 mg/dL (140-199); Estimated Glomerular Filt Rate > 60 mL/min (>60); Globulin 2.9 g/dL (1.7-4.1); Glucose 140 mg/dL (80-110); HDL Cholesterol 37 mg/dL (40-60); HEMOLYSIS < 15 (0-50); LDL Cholesterol Calculated 78 mg/dL (<100); Potassium 4.6 mmol/L (3.4-5.1); Sodium 138 mmol/L (137-145); Total Protein 7.1 g/dL (6.3-8.2); Triglycerides 149 mg/dL (35-150)
[2023-06-12 05:36] LABS: x Labcorp Estim. Avg Glu (eAG) 174 mg/dL (.); x Labcorp Hemoglobin A1c 7.7 % (4.8-5.6)
== END ==
LOC: LAB 09:29
PROVIDERS: PCP Nurse Practitioner; Referring Provider Nurse Practitioner; Visit Provider Nurse Practitioner
DX: E11.9 Type 2 diabetes mellitus without complications (principal); I10 Essential (primary) hypertension; E78.2 Mixed hyperlipidemia
CPT/HCPCS: 36415; 80053; 80061; 83036

== ENCOUNTER → 2023-06-20 15:59 | Outpatient (CLI) | payer OTHER, SELFPAY ==
--- NOTE | 2023-06-20 | DI.MG.S_ITS ---
BILATERAL DIGITAL SCREENING MAMMOGRAM 3D/2D WITH CAD: 06/20/2023 CLINICAL: Routine screening. Personal history of left breast cancer. Family history of breast cancer. Comparison is made to exams dated: 06/17/2022 mammogram, 06/09/2021 mammogram, and 06/06/2020 mammogram - [facility]. There are scattered areas of fibroglandular density in both breasts (category b / 25%-50% glandular tissue). Current study was also evaluated with a Computer Aided Detection (CAD) system. There are benign post operative findings in the left breast. No significant masses, calcifications, or other findings are seen in either breast. There has been no significant interval change. IMPRESSION: BENIGN There is no mammographic evidence of malignancy. A 1 year screening mammogram is recommended. This exam was interpreted at Station ID: [id number]. NOTE: For mammograms, a report in lay terms will be sent to the patient. Approximately 15% of breast malignancies will not be visualized mammographically. In the management of a palpable breast mass, a negative mammogram must not discourage biopsy of a clinically suspicious lesion. Electronically Signed By: Bessy Gómez M.D., PH.D lindy/christine:06/21/2023 16:29:12 copy to: LEANDRO BOGGS letter sent: Normal Exam ACR BI-RADS Category 2: Benign Finding(s) 3342F
== END ==
LOC: MAMMO 15:59
PROVIDERS: PCP Nurse Practitioner; Referring Provider Nurse Practitioner; Visit Provider Nurse Practitioner
DX: Z12.31 Encounter for screening mammogram for malignant neoplasm of breast (principal); Z85.3 Personal history of malignant neoplasm of breast; Z80.3 Family history of malignant neoplasm of breast; R92.323 Mammographic fibroglandular density, bilateral breasts
CPT/HCPCS: 77063; 77067

== ENCOUNTER → 2023-09-14 06:48 | Outpatient (CLI) | payer OTHER, SELFPAY ==
[2023-09-14 07:51] LABS: Hematocrit 41.4 % (36-46); Hemoglobin 14.1 g/dL (12.0-16.0); Mean Corpuscular Hemoglobin 29.8 PG (26-34); Mean Corpuscular Volume 87.5 fL (80-100); Platelet Count 262 X10^3/uL (150-400); Red Blood Cell Count 4.73 X10^6/uL (4.0-5.2); Red Cell Distribution Width 13.1 % (11.6-14.8); White Blood Cell Count 6.7 X10^3/uL (4.5-11.0)
[2023-09-14 07:57] LABS: Hemoglobin A1C% w Est Avg Glu 7.5 % (4.0-6.0)
[2023-09-14 08:05] LABS: Alanine Aminotransferase 30 IU/L (<35); Albumin 4.5 g/dL (3.5-5.0); Albumin Globulin Ratio 1.6 (1.0-2.8); Alkaline Phosphatase 48 U/L (38-126); Aspartate Aminotransferase 25 IU/L (14-36); BUN Creatinine Ratio 36.4 (6-22); Bilirubin Total 0.6 mg/dL (0.2-1.3); Blood Urea Nitrogen 16 mg/dL (7-17); Calcium 9.3 mg/dL (8.4-10.2); Carbon Dioxide 26 mmol/L (22-32); Chloride 105 mmol/L (98-107); Estimated Glomerular Filt Rate > 60 mL/min (>60); Globulin 2.8 g/dL (1.7-4.1); Glucose 176 mg/dL (80-110); HEMOLYSIS < 15 (0-50); Potassium 4.5 mmol/L (3.4-5.1); Sodium 138 mmol/L (137-145); Total Protein 7.3 g/dL (6.3-8.2)
[2023-09-14 08:21] LABS: Creatinine Urine Random 100.2 mg/dL
[2023-09-14 08:24] LABS: Microalbumi Creatinin Ratio Ur 9.9 ug/mg CR (<30)
[2023-09-14 11:38] LABS: Free T3, Triiodothyronine Free 3.84 pg/mL (2.77-5.27); Free T4, Direct Thyroxine 1.28 ng/dL (0.78-2.19)
[2023-09-14 11:52] LABS: Thyroid Stimulating Hormone 2.04 uIU/mL (0.47-4.68)
== END ==
PROVIDERS: PCP Nurse Practitioner; Referring Provider Nurse Practitioner; Visit Provider Nurse Practitioner
DX: Z00.00 Encounter for general adult medical examination without abnormal findings (principal); E11.9 Type 2 diabetes mellitus without complications; I10 Essential (primary) hypertension; E78.2 Mixed hyperlipidemia; F41.9 Anxiety disorder, unspecified; Z79.899 Other long term (current) drug therapy
CPT/HCPCS: 36415; 80053; 82043; 82570; 83036; 84439; 84443; 84481; 85027

== ENCOUNTER → 2024-02-08 06:52 | Outpatient (CLI) | payer OTHER, SELFPAY ==
[2024-02-08 08:41] LABS: Hemoglobin A1C% w Est Avg Glu 7.7 % (4.0-6.0)
[2024-02-08 09:04] LABS: Alanine Aminotransferase 40 IU/L (<35); Albumin 4.1 g/dL (3.5-5.0); Albumin Globulin Ratio 1.5 (1.0-2.8); Alkaline Phosphatase 54 U/L (38-126); Aspartate Aminotransferase 52 IU/L (14-36); BUN Creatinine Ratio 38.1 (6-22); Bilirubin Total 0.6 mg/dL (0.2-1.3); Blood Urea Nitrogen 16 mg/dL (7-17); Calcium 9.4 mg/dL (8.4-10.2); Carbon Dioxide 25 mmol/L (22-32); Chloride 101 mmol/L (98-107); Cholesterol 129 mg/dL (140-199); Estimated Glomerular Filt Rate > 60 mL/min (>60); Globulin 2.7 g/dL (1.7-4.1); Glucose 203 mg/dL (80-110); HDL Cholesterol 36 mg/dL (40-60); HEMOLYSIS < 15 (0-50); LDL Cholesterol Calculated 64 mg/dL (<100); Potassium 4.4 mmol/L (3.4-5.1); Sodium 134 mmol/L (137-145); Total Protein 6.8 g/dL (6.3-8.2); Triglycerides 145 mg/dL (35-150)
== END ==
PROVIDERS: PCP Family Medicine; Referring Provider Nurse Practitioner; Visit Provider Nurse Practitioner
DX: E11.69 Type 2 diabetes mellitus with other specified complication (principal); E78.5 Hyperlipidemia, unspecified; I10 Essential (primary) hypertension; Z79.899 Other long term (current) drug therapy
CPT/HCPCS: 36415; 80053; 80061; 83036

== ENCOUNTER → 2024-05-22 07:01 | Outpatient (CLI) | payer OTHER, SELFPAY ==
[2024-05-22 07:30] LABS: Add Manual Diff / Slide Review NO; Basophils Absolute Auto 100 /uL (0-100); Basophils Percent Auto 0.8 % (0-2); Eosinophils Absolute Auto 300 /uL (0-450); Eosinophils Percent Auto 4.4 % (2-4); Hematocrit 43.3 % (36-46); Hemoglobin 14.4 g/dL (12.0-16.0); Lymphocytes Absolute Auto 1500 /uL (1100-4500); Mean Corpuscular HGB Conc 33.2 % (30-36); Mean Corpuscular Hemoglobin 29.5 PG (26-34); Mean Corpuscular Volume 88.8 fL (80-100); Monocytes Absolute Auto 600 /uL (0-900); Monocytes Percent Auto 8.5 % (3-14); Neutrophils Absolute Auto 4500 /uL (1500-7000); Neutrophils Percent Auto 64.3 % (50-75); Platelet Count 277 X10^3/uL (150-400); Red Blood Cell Count 4.88 X10^6/uL (4.0-5.2); Red Cell Distribution Width 13.5 % (11.6-14.8); White Blood Cell Count 6.9 X10^3/uL (4.5-11.0)
[2024-05-22 07:58] LABS: Alanine Aminotransferase 32 IU/L (<35); Albumin 4.5 g/dL (3.5-5.0); Albumin Globulin Ratio 1.9 (1.0-2.8); Alkaline Phosphatase 41 U/L (38-126); Aspartate Aminotransferase 30 IU/L (14-36); BUN Creatinine Ratio 34.6 (6-22); Bilirubin Total 0.4 mg/dL (0.2-1.3); Blood Urea Nitrogen 18 mg/dL (7-17); Calcium 9.7 mg/dL (8.4-10.2); Carbon Dioxide 26 mmol/L (22-32); Chloride 105 mmol/L (98-107); Estimated Glomerular Filt Rate > 60 mL/min (>60); Globulin 2.4 g/dL (1.7-4.1); Glucose 117 mg/dL (80-110); HEMOLYSIS < 15 (0-50); Potassium 4.7 mmol/L (3.4-5.1); Sodium 138 mmol/L (137-145); Total Protein 6.9 g/dL (6.3-8.2)
[2024-05-22 09:37] LABS: Hemoglobin A1C% w Est Avg Glu 6.3 % (4.0-6.0)
== END ==
PROVIDERS: PCP Family Medicine; Referring Provider Family Medicine; Visit Provider Family Medicine
DX: E11.69 Type 2 diabetes mellitus with other specified complication (principal); E78.5 Hyperlipidemia, unspecified; I10 Essential (primary) hypertension
CPT/HCPCS: 36415; 80053; 83036; 85025

== ENCOUNTER → 2024-07-10 15:41 | Outpatient (CLI) | payer OTHER, SELFPAY ==
--- NOTE | 2024-07-10 15:42 | DI.MG.S_ITS ---
MM screening mammo BI: 07/10/2024. BI-RADS: 2 CLINICAL: 64-year old female for bilateral screening mammogram. No Tyrer-Cuzick risk score calculation due to the patient's personal history of breast cancer. Patient reports a history of left breast carcinoma diagnosed at age 55. Status-post left lumpectomy with chemotherapy. Current reported family history of breast cancer: mother and maternal aunt. History of ovarian cancer in one first-degree relative. The patient reports testing negative for BRCA gene mutation. The patient had a prior right breast biopsy. PRIOR EXAMS 06/20/2023, 06/17/2022, 06/09/2021, 06/06/2020, 06/05/2019, 06/01/2018, 05/23/2017, 05/21/2016, 05/21/2015, 04/29/2015, 04/14/2015, 03/24/2015, 03/03/2015. MAMMOGRAPHY TECHNIQUE: 2D and 3D (tomosynthesis) digital mammographic views obtained, with additional images as needed for full coverage. Current study was also evaluated with a Computer Aided Detection (CAD) system. DENSITY B. There are scattered areas of fibroglandular density. MAMMOGRAPHY FINDINGS Right: Benign-appearing calcification noted on the right. There are no suspicious masses, calcifications, or other findings in the breast. Left: Benign-appearing calcification and post-surgical changes noted on the left. There are no suspicious masses, calcifications, or other findings in the breast. IMPRESSION: * No evidence of malignancy with benign findings. RECOMMENDATIONS Bilateral * Annual screening mammography. OVERALL ASSESSMENT CATEGORY BI-RADS-2: Benign. The [employer] recommends annual screening mammography beginning at age 40 for women with average risk of breast cancer. ELECTRONICALLY SIGNED: Sheila Gongora M.D. on 07/11/2024 at 09:19:16 AM PT Interpreting Station ID: [id number]
== END ==
PROVIDERS: PCP Family Medicine; Referring Provider Family Medicine; Visit Provider Family Medicine
DX: Z12.31 Encounter for screening mammogram for malignant neoplasm of breast (principal); Z85.3 Personal history of malignant neoplasm of breast; Z80.3 Family history of malignant neoplasm of breast; Z80.41 Family history of malignant neoplasm of ovary
CPT/HCPCS: 77063; 77067

== ENCOUNTER → 2024-09-18 06:50 | Outpatient (CLI) | payer OTHER, SELFPAY ==
[2024-09-18 08:17] LABS: Add Manual Diff / Slide Review NO; Basophils Absolute Auto 100 /uL (0-100); Basophils Percent Auto 0.8 % (0-2); Eosinophils Absolute Auto 300 /uL (0-450); Hematocrit 42.6 % (36-46); Hemoglobin 14.3 g/dL (12.0-16.0); Lymphocytes Absolute Auto 1800 /uL (1100-4500); Lymphocytes Percent Auto 25.9 % (25-40); Mean Corpuscular HGB Conc 33.5 % (30-36); Mean Corpuscular Hemoglobin 29.7 PG (26-34); Mean Corpuscular Volume 88.7 fL (80-100); Monocytes Absolute Auto 500 /uL (0-900); Monocytes Percent Auto 6.4 % (3-14); Neutrophils Absolute Auto 4500 /uL (1500-7000); Neutrophils Percent Auto 62.9 % (50-75); Platelet Count 289 X10^3/uL (150-400); Red Blood Cell Count 4.81 X10^6/uL (4.0-5.2); Red Cell Distribution Width 13.1 % (11.6-14.8); White Blood Cell Count 7.1 X10^3/uL (4.5-11.0)
[2024-09-18 08:23] LABS: Hemoglobin A1C% w Est Avg Glu 6.1 % (4.0-6.0)
[2024-09-18 08:35] LABS: Alanine Aminotransferase 30 IU/L (<35); Albumin 4.5 g/dL (3.5-5.0); Albumin Globulin Ratio 1.9 (1.0-2.8); Alkaline Phosphatase 47 U/L (38-126); Aspartate Aminotransferase 28 IU/L (14-36); BUN Creatinine Ratio 29.6 (6-22); Bilirubin Total 0.4 mg/dL (0.2-1.3); Blood Urea Nitrogen 16 mg/dL (7-17); Calcium 9.6 mg/dL (8.4-10.2); Carbon Dioxide 23 mmol/L (22-32); Chloride 103 mmol/L (98-107); Cholesterol 160 mg/dL (140-199); Estimated Glomerular Filt Rate > 60 mL/min (>60); Globulin 2.4 g/dL (1.7-4.1); Glucose 134 mg/dL (70-99); HDL Cholesterol 40 mg/dL (40-60); HEMOLYSIS < 15 (0-50); LDL Cholesterol Calculated 92 mg/dL (<100); Potassium 4.5 mmol/L (3.4-5.1); Sodium 137 mmol/L (137-145); Total Protein 6.9 g/dL (6.3-8.2); Triglycerides 138 mg/dL (35-150)
[2024-09-18 08:55] LABS: Creatinine Urine Random 103.01 mg/dL
[2024-09-18 09:00] LABS: Microalbumin Urine Random 0.9 mg/dL (0-1.6)
== END ==
PROVIDERS: PCP Family Medicine; Referring Provider Family Medicine; Visit Provider Family Medicine
DX: K76.0 Fatty (change of) liver, not elsewhere classified (principal); E11.69 Type 2 diabetes mellitus with other specified complication; I10 Essential (primary) hypertension; E78.5 Hyperlipidemia, unspecified
CPT/HCPCS: 36415; 80053; 80061; 82043; 82570; 83036; 85025

== ENCOUNTER → 2025-04-02 06:46 | Outpatient (CLI) | payer OTHER, SELFPAY ==
[2025-04-02 08:39] LABS: Hemoglobin A1C% w Est Avg Glu 7.1 % (4.0-6.0)
[2025-04-02 09:06] LABS: Alanine Aminotransferase 29 IU/L (<35); Albumin 4.4 g/dL (3.5-5.0); Albumin Globulin Ratio 1.6 (1.0-2.8); Alkaline Phosphatase 55 U/L (38-126); Blood Urea Nitrogen 18 mg/dL (7-17); Calcium 9.8 mg/dL (8.4-10.2); Carbon Dioxide 24 mmol/L (22-32); Chloride 104 mmol/L (98-107); Estimated Glomerular Filt Rate > 60 mL/min (>60); Globulin 2.8 g/dL (1.7-4.1); Glucose 191 mg/dL (70-99); HEMOLYSIS < 15 (0-50); Potassium 4.6 mmol/L (3.4-5.1); Sodium 139 mmol/L (137-145); Total Protein 7.2 g/dL (6.3-8.2)
== END ==
PROVIDERS: PCP Family Medicine; Referring Provider Family Medicine; Visit Provider Family Medicine
DX: E11.69 Type 2 diabetes mellitus with other specified complication (principal); K76.0 Fatty (change of) liver, not elsewhere classified; E78.5 Hyperlipidemia, unspecified
CPT/HCPCS: 36415; 80053; 83036